=== PATIENT | male | born 1935 | race Caucasian/White ===

== ENCOUNTER → 2017-01-15 | Outpatient (CLI) | payer MEDICARE, OTHER ==
[~2017-01-15] MED LIST: ALBU8.5H3 INH; ASPI-621 PO; ASPI325T80 PO; ASPI325T92 PO; CHOL200024 PO; CLOP75TA PO; DABI150C PO; FINA5TAB4 PO; HYDR-3138 PO; HYDR25TA6 PO; LOSA100T6 PO; METO25TA35 PO; NITR0.4T8 SL; OMEP40CA6 PO; PRAV80TA2 PO; PRO AIR HFA PO; SULF1TAB24 PO; TAMS0.4C2 PO; TIZA4TAB PO; VIT1TABL32 PO
== END | disposition home or self-care (01) ==
LOC: CFH 12:37
PROVIDERS: ATTEND Internal Medicine Cardiovascular Disease
DX: R07.9 Chest pain, unspecified (principal)
CPT/HCPCS: 93306

== ENCOUNTER 2017-01-21 09:40 | Inpatient (IN) | payer MEDICARE, OTHER ==
[~2017-01-21] VITALS: Ht 185.4 cm; Wt 103.1 kg
[2017-01-21] MEDS ORDERED: SODIUM CHLORIDE 0.9% 1,000 ML IV SCH (10:01)
[2017-01-21] MEDS ORDERED: ASPIRIN 325 MG TABLET EC PO ONE (10:30)
[2017-01-21] MEDS ORDERED: BISACODYL 5 MG EC TABLET PO PRN (10:30)
[2017-01-21] MEDS ORDERED: PLEASE ENTER HEIGHT AND WEIGHT MC SCH (10:30)
[2017-01-21] MEDS ORDERED: BISACODYL 10 MG SUPP PR PRN (10:30)
[2017-01-21] MEDS ORDERED: ONDANSETRON 2MG/ML, 2ML IVPush PRN (10:30)
[2017-01-21] MEDS ORDERED: ZOLPIDEM 5MG TABLET PO PRN (10:30)
[2017-01-21] MEDS ORDERED: ACETAMINOPHEN 325 MG TABLET PO PRN (10:30)
[2017-01-21 10:31] VITALS: BP 166/89
[2017-01-21 10:42] LABS: HEMATOCRIT 48.5 % (39.2-51.8); HEMOGLOBIN 16.2 g/dL (13.7-18.0); WHITE BLOOD COUNT 6.4 x10^3/uL (3.4-10)
[2017-01-21 10:50] LABS: BLOOD UREA NITROGEN 21 mg/dL (7-18)
[2017-01-21 11:01] VITALS: BP 168/89
[2017-01-21] MEDS ORDERED: MIDAZOLAM 1 MG/ML, 5ML ONE (11:23)
[2017-01-21] MEDS ORDERED: LIDOCAINE 2%, 20ML ONE (11:23)
[2017-01-21] MEDS ORDERED: FENTANYL PF 100 MCG/2ML ONE (11:23)
[2017-01-21] MEDS ORDERED: NITROGLYCERIN 0.4 MG BOTTLE (25 TABS) SL PRN (13:30)
[2017-01-21] MEDS: METOPROLOL TARTRATE 25 MG TABLET PO SCH (18:20)
[2017-01-21 19:49] VITALS: BP 136/68
[2017-01-21] MEDS: PRAVASTATIN 40 MG TABLET PO SCH (21:35)
[2017-01-22 01:32] VITALS: BP_SYST 127; BP_SYST 146; BP_DIAS 62; BP_DIAS 82
[2017-01-22] MEDS: ASPIRIN 81 MG TABLET EC PO SCH (06:45)
[2017-01-22] MEDS: METOPROLOL TARTRATE 25 MG TABLET PO SCH ×2 (06:45→17:12)
[2017-01-22 06:52] VITALS: BP 138/80
[2017-01-22] MEDS: OMEPRAZOLE 20 MG CAPSULE.DR PO SCH (07:30)
[2017-01-22] MEDS ORDERED: DABIGATRAN 150 MG CAPSULE PO SCH (09:00)
[2017-01-22] MEDS ORDERED: CLOPIDOGREL 75 MG TABLET PO SCH (09:00)
[2017-01-22] MEDS: CHOLECALCIFEROL 1,000 UNIT TABLET PO SCH (09:34)
[2017-01-22] MEDS: MULTIVITAMINS/MINERALS TABLET PO SCH (09:35)
[2017-01-22] MEDS: LOSARTAN 50MG TABLET PO SCH (09:35)
[2017-01-22] MEDS: HYDROCHLOROTHIAZIDE 25 MG TABLET PO SCH (09:35)
[2017-01-22] MEDS: TIZANIDINE 4MG TABLET PO SCH (09:35)
[2017-01-22 12:58] VITALS: BP 120/71
[2017-01-22 17:11] VITALS: BP 137/74
[2017-01-22 20:11] VITALS: BP 123/73
[2017-01-22] MEDS: PRAVASTATIN 40 MG TABLET PO SCH (22:42)
[2017-01-23 03:32] VITALS: BP 128/72
[2017-01-23] MEDS: METOPROLOL TARTRATE 25 MG TABLET PO SCH ×2 (06:37→17:46)
[2017-01-23] MEDS: ASPIRIN 81 MG TABLET EC PO SCH (06:37)
[2017-01-23 07:54] VITALS: BP 120/69
[2017-01-23] MEDS: OMEPRAZOLE 20 MG CAPSULE.DR PO SCH (08:30)
[2017-01-23] MEDS: MULTIVITAMINS/MINERALS TABLET PO SCH (08:31)
[2017-01-23] MEDS: TIZANIDINE 4MG TABLET PO SCH (08:31)
[2017-01-23] MEDS: HYDROCHLOROTHIAZIDE 25 MG TABLET PO SCH (08:31)
[2017-01-23] MEDS: CHOLECALCIFEROL 1,000 UNIT TABLET PO SCH (08:31)
[2017-01-23] MEDS: LOSARTAN 50MG TABLET PO SCH (08:32)
[2017-01-23 13:44] VITALS: BP 108/61
[2017-01-23] MEDS: PRAVASTATIN 40 MG TABLET PO SCH (20:36)
[2017-01-23 20:40] VITALS: BP 123/71
[2017-01-24 03:32] VITALS: BP 118/69
[2017-01-24] MEDS: ASPIRIN 81 MG TABLET EC PO SCH (06:54)
[2017-01-24] MEDS: METOPROLOL TARTRATE 25 MG TABLET PO SCH ×2 (06:54→18:02)
[2017-01-24] MEDS: OMEPRAZOLE 20 MG CAPSULE.DR PO SCH (07:30)
[2017-01-24 07:32] VITALS: BP 117/69
[2017-01-24] MEDS: TIZANIDINE 4MG TABLET PO SCH (07:46)
[2017-01-24] MEDS: LOSARTAN 50MG TABLET PO SCH (07:46)
[2017-01-24] MEDS: CHOLECALCIFEROL 1,000 UNIT TABLET PO SCH (07:46)
[2017-01-24] MEDS: HYDROCHLOROTHIAZIDE 25 MG TABLET PO SCH (07:46)
[2017-01-24] MEDS: MULTIVITAMINS/MINERALS TABLET PO SCH (07:46)
[2017-01-24] MEDS ORDERED: HEPARIN wt. based STROKE protocol MC PRN (10:00)
[2017-01-24] MEDS ORDERED: HEPARIN 25,000 UNITS/500ML PMX 500 ML IV PRN (10:30)
[2017-01-24] MEDS ORDERED: HEPARIN 5,000 UNITS/ML, 1ML ONE (10:32)
[2017-01-24 10:47] LABS: HEMATOCRIT 48.7 % (39.2-51.8); HEMOGLOBIN 16.2 g/dL (13.7-18.0)
[2017-01-24] MEDS: HEPARIN 25,000 UNITS/500ML PMX 500 ML IV PRN (10:54)
[2017-01-24] MEDS ORDERED: HEPARIN 5,000 UNITS/ML, 1ML IV ONE (11:00)
[2017-01-24 14:17] VITALS: BP 121/74
[2017-01-24 20:19] VITALS: BP 128/75
[2017-01-24] MEDS: PRAVASTATIN 40 MG TABLET PO SCH (20:22)
[2017-01-24] MEDS: HEPARIN 5,000 UNITS/ML, 1ML IV PRN (23:18)
[2017-01-25 03:19] VITALS: BP 121/71
[2017-01-25 05:21] VITALS: BP 117/72
[2017-01-25] MEDS: ASPIRIN 81 MG TABLET EC PO SCH (05:21)
[2017-01-25] MEDS: METOPROLOL TARTRATE 25 MG TABLET PO SCH ×2 (05:21→17:26)
[2017-01-25] MEDS: HEPARIN 25,000 UNITS/500ML PMX 500 ML IV PRN ×2 (05:27→23:12)
[2017-01-25 07:03] VITALS: BP 123/73
[2017-01-25] MEDS: OMEPRAZOLE 20 MG CAPSULE.DR PO SCH (07:30)
[2017-01-25] MEDS: TIZANIDINE 4MG TABLET PO SCH (09:12)
[2017-01-25] MEDS: MULTIVITAMINS/MINERALS TABLET PO SCH (09:12)
[2017-01-25] MEDS: LOSARTAN 50MG TABLET PO SCH (09:12)
[2017-01-25] MEDS: CHOLECALCIFEROL 1,000 UNIT TABLET PO SCH (09:13)
[2017-01-25] MEDS: HYDROCHLOROTHIAZIDE 25 MG TABLET PO SCH (09:13)
[2017-01-25] MEDS: HEPARIN 5,000 UNITS/ML, 1ML IV PRN (12:10)
[2017-01-25 14:00] VITALS: BP 109/64
[2017-01-25 19:27] VITALS: BP 102/62
[2017-01-25] MEDS: PRAVASTATIN 40 MG TABLET PO SCH (21:04)
[2017-01-26 01:17] VITALS: BP 180/88
[2017-01-26 01:19] VITALS: BP 138/69
[2017-01-26 05:26] VITALS: BP 143/76
[2017-01-26] MEDS: METOPROLOL TARTRATE 25 MG TABLET PO SCH ×2 (05:26→16:38)
[2017-01-26] MEDS: ASPIRIN 81 MG TABLET EC PO SCH (05:27)
[2017-01-26] MEDS ORDERED: INSULIN ASPART 100 UNITS/ML, PEN SQ-INSULIN SCH (08:00)
[2017-01-26] MEDS ORDERED: METOPROLOL TARTRATE 25 MG TABLET PO ONE (08:00)
[2017-01-26] MEDS ORDERED: CHLORHEXIDINE MOUTHWASH 15 ML UDC MM PRN (08:00)
[2017-01-26] MEDS: HYDROCHLOROTHIAZIDE 25 MG TABLET PO SCH (08:06)
[2017-01-26] MEDS: CHOLECALCIFEROL 1,000 UNIT TABLET PO SCH (08:06)
[2017-01-26] MEDS: MULTIVITAMINS/MINERALS TABLET PO SCH (08:07)
[2017-01-26] MEDS: OMEPRAZOLE 20 MG CAPSULE.DR PO SCH (08:07)
[2017-01-26] MEDS: TIZANIDINE 4MG TABLET PO SCH (08:07)
[2017-01-26] MEDS: LOSARTAN 50MG TABLET PO SCH (08:07)
[2017-01-26] MEDS: MUPIROCIN OINT 2%, 22GM TP SCH ×2 (08:08→23:12)
[2017-01-26] MEDS: SODIUM CHLORIDE FLUSH 10ML SYR IVF SCH ×2 (08:10→22:15)
[2017-01-26 08:13] VITALS: BP 137/80
[2017-01-26 08:20] LABS: HEMATOCRIT 52.3 % (39.2-51.8); HEMOGLOBIN 17.3 g/dL (13.7-18.0); WHITE BLOOD COUNT 7.8 x10^3/uL (3.4-10)
[2017-01-26 08:30] LABS: ASPARTATE AMINO TRANSFERASE 23 U/L (15-37); BLOOD UREA NITROGEN 24 mg/dL (7-18)
[2017-01-26 12:49] LABS: PATH.CAST-FLAG NOT PRESENT; SPERM-FLAG NOT PRESENT; SRC-FLAG NOT PRESENT; XTAL-FLAG NOT PRESENT; YLC-FLAG NOT PRESENT
[2017-01-26 14:30] VITALS: BP 115/68
[2017-01-26] MEDS: HEPARIN 25,000 UNITS/500ML PMX 500 ML IV PRN (16:00)
[2017-01-26 19:40] VITALS: BP 122/69
[2017-01-26] MEDS: PRAVASTATIN 40 MG TABLET PO SCH (22:15)
[2017-01-27] MEDS ORDERED: ALBUMIN HUMAN 5% 500 ML IV ONE (00:30)
[2017-01-27 03:30] VITALS: BP_SYST 118; BP_SYST 120; BP_DIAS 68; BP_DIAS 70
[2017-01-27] MEDS: ASPIRIN 81 MG TABLET EC PO SCH (05:16)
[2017-01-27] MEDS: METOPROLOL TARTRATE 25 MG TABLET PO SCH (05:17)
[2017-01-27] MEDS: MUPIROCIN OINT 2%, 22GM TP SCH (05:17)
[2017-01-27] MEDS ORDERED: FENTANYL PF 1000 MCG/20ML ONE (06:30)
[2017-01-27] MEDS ORDERED: MIDAZOLAM 10MG/2 ML ONE (06:31)
[2017-01-27] MEDS ORDERED: REGULAR INSULIN 62.5 UNITS in SODIUM CHLORIDE 0.9% 249.375 ML IV PRN ×2 (07:30→11:15)
[2017-01-27] MEDS ORDERED: MANNITOL PMX 20% 500 ML IVPB PRN (07:30)
[2017-01-27] MEDS ORDERED: CEFUROXIME 1.5 GM in SODIUM CHLORIDE 0.9% 50 ML IVPB PRN (07:30)
[2017-01-27] MEDS ORDERED: DEXMEDETOMIDINE 200 MCG in SODIUM CHLORIDE 0.9% 48 ML IV SCH (07:30)
[2017-01-27] MEDS ORDERED: EPINEPHRINE 2 MG in SODIUM CHLORIDE 0.9% 248 ML IV SCH (07:30)
[2017-01-27] MEDS ORDERED: POTASSIUM CHLORIDE 80 MEQ, SODIUM BICARBONATE 8.4% 10 MEQ, MAGNESIUM SULFATE 0.5 GM, LI... IV PRN (07:30)
[2017-01-27] MEDS ORDERED: PHENYLEPHRINE 10 MG in SODIUM CHLORIDE 0.9% 249 ML IV PRN ×2 (07:30→11:15)
[2017-01-27] MEDS: OMEPRAZOLE 20 MG CAPSULE.DR PO SCH (07:30)
[2017-01-27] MEDS ORDERED: VANCOMYCIN 1,500 MG in SODIUM CHLORIDE 0.9% 250 ML IVPB PRN (07:30)
[2017-01-27] MEDS: LOSARTAN 50MG TABLET PO SCH (09:00)
[2017-01-27] MEDS: MULTIVITAMINS/MINERALS TABLET PO SCH (09:00)
[2017-01-27] MEDS: HYDROCHLOROTHIAZIDE 25 MG TABLET PO SCH (09:00)
[2017-01-27] MEDS: SODIUM CHLORIDE FLUSH 10ML SYR IVF SCH ×3 (09:00→21:45)
[2017-01-27] MEDS: TIZANIDINE 4MG TABLET PO SCH (09:00)
[2017-01-27] MEDS: CHOLECALCIFEROL 1,000 UNIT TABLET PO SCH (09:00)
[2017-01-27] MEDS ORDERED: PAPAVERINE 30 MG/ML, 2ML IVPush ONE (10:42)
[2017-01-27] MEDS ORDERED: HEPARIN 1,000 UNITS/ML, 10ML IV ONE (10:43)
[2017-01-27] MEDS ORDERED: PROTAMINE SULFATE 10 MG/ML, 25ML ONE (11:01)
[2017-01-27] MEDS ORDERED: PAPAVERINE 30 MG/ML, 2ML ONE (11:01)
[2017-01-27] MEDS ORDERED: HEPARIN 1,000 UNITS/ML, 10ML ONE (11:01)
[2017-01-27] MEDS ORDERED: AMINOCAPROIC ACID 250 MG/ML, 20ML ONE (11:01)
[2017-01-27] MEDS ORDERED: AMIODARONE 50 MG/ML, 3ML ONE (11:01)
[2017-01-27] MEDS ORDERED: SODIUM CHLORIDE 0.9% 1,000 ML IV PRN (11:15)
[2017-01-27] MEDS ORDERED: DOBUTAMINE 250 MG in SODIUM CHLORIDE 0.9% 230 ML IV PRN (11:15)
[2017-01-27] MEDS ORDERED: NITROGLYCERIN/D5W PMX 250 ML IV PRN (11:15)
[2017-01-27] MEDS ORDERED: DEXMEDETOMIDINE 200 MCG in SODIUM CHLORIDE 0.9% 48 ML IV PRN (11:15)
[2017-01-27] MEDS ORDERED: FUROSEMIDE 20 MG/2 ML IV SCH (11:30)
[2017-01-27] MEDS ORDERED: PROCHLORPERAZINE 5 MG/ML, 2ML IVPush PRN (11:30)
[2017-01-27] MEDS ORDERED: ACETAMINOPHEN 325 MG TABLET PO PRN (11:30)
[2017-01-27] MEDS ORDERED: DEXTROSE 50%, 50ML SYRINGE IVPush PRN (11:30)
[2017-01-27] MEDS ORDERED: EPINEPHRINE 2 MG in SODIUM CHLORIDE 0.9% 248 ML IV PRN (11:30)
[2017-01-27] MEDS ORDERED: BISACODYL 10 MG SUPP PR PRN (11:30)
[2017-01-27] MEDS ORDERED: BISACODYL 5 MG EC TABLET PO PRN (11:30)
[2017-01-27] MEDS ORDERED: DEXTROSE 4 GM TAB.CHEW PO PRN (11:30)
[2017-01-27] MEDS ORDERED: ACETAMINOPHEN 650 MG SUPP PR PRN (11:30)
[2017-01-27] MEDS ORDERED: SODIUM BICARB 8.4%, 50ML SYRINGE IV PRN (11:30)
[2017-01-27] MEDS ORDERED: LACTATED RINGERS 500 ML IVBOLUS PRN (11:30)
[2017-01-27] MEDS: KSCALE TO 4.5 IV SCH ×3 (11:30→23:30)
[2017-01-27] MEDS ORDERED: GLUCAGON 1 MG IM PRN (11:30)
[2017-01-27] MEDS ORDERED: MIDAZOLAM 1 MG/ML, 5ML IVPush PRN (11:30)
[2017-01-27] MEDS ORDERED: MEPERIDINE/PF 25MG/0.5ML IVPush PRN (11:30)
[2017-01-27 11:49] LABS: ABG COLLECTION SITE ARTERIAL LINE
[2017-01-27 11:52] LABS: HEMOGLOBIN 12.6 g/dL (13.7-18.0)
[2017-01-27] MEDS: MAGNESIUM SULFATE 1 GM in SODIUM CHLORIDE 0.9% 50 ML IVPB SCH (12:53)
[2017-01-27] MEDS ORDERED: POTASSIUM CHLORIDE PMX 100 ML IV ONE (13:00)
[2017-01-27] MEDS ORDERED: SODIUM BICARB 8.4%, 50ML SYRINGE ONE (13:10)
[2017-01-27] MEDS ORDERED: ALBUMIN HUMAN 25% 50 ML ONE (13:10)
[2017-01-27] MEDS ORDERED: HEPARIN 1,000 UNITS/ML, 30ML ONE (13:10)
[2017-01-27] MEDS ORDERED: LIDOCAINE 2% 100MG/5ML SYRINGE ONE (13:10)
[2017-01-27] MEDS: morphine SULFATE 10 MG/ML, 1ML IVPush PRN ×2 (15:14→16:54)
[2017-01-27] MEDS: HYDROcodone/APAP 10/325 MG TABLET PO PRN (16:30)
[2017-01-27] MEDS: ONDANSETRON 2MG/ML, 2ML IVPush PRN (16:50)
[2017-01-27] MEDS: CEFUROXIME 1.5 GM in SODIUM CHLORIDE 0.9% 50 ML IVPB SCH (17:51)
[2017-01-27 17:56] LABS: HEMATOCRIT 40.3 % (39.2-51.8); HEMOGLOBIN 13.4 g/dL (13.7-18.0)
[2017-01-27] MEDS ORDERED: POTASSIUM CHLORIDE 40 MEQ in SODIUM CHLORIDE 0.9% 100 ML IV ONE (18:00)
[2017-01-27] MEDS: VANCOMYCIN 1,500 MG in SODIUM CHLORIDE 0.9% 250 ML IVPB SCH (18:26)
[2017-01-27] MEDS: DOCUSATE 100 MG CAPSULE PO SCH (21:45)
[2017-01-27] MEDS: OXYcodone IR 5MG TABLET PO PRN ×2 (21:47→22:40)
[2017-01-27] MEDS: MUPIROCIN OINT 2%, 22GM NAS SCH (22:40)
[2017-01-27 23:42] LABS: HEMATOCRIT 38.6 % (39.2-51.8); HEMOGLOBIN 12.8 g/dL (13.7-18.0)
[2017-01-28] MEDS: OXYcodone IR 5MG TABLET PO PRN ×6 (00:15→23:52)
[2017-01-28] MEDS: morphine SULFATE 10 MG/ML, 1ML IVPush PRN ×2 (02:39→02:53)
[2017-01-28 04:30] VITALS: BP 113/58
[2017-01-28] MEDS: KSCALE TO 4.5 IV SCH (05:30)
[2017-01-28] MEDS: VANCOMYCIN 1,500 MG in SODIUM CHLORIDE 0.9% 250 ML IVPB SCH (05:36)
[2017-01-28 05:58] LABS: ABG COLLECTION SITE ARTERIAL LINE
[2017-01-28 06:07] LABS: HEMATOCRIT 38.2 % (39.2-51.8); HEMOGLOBIN 12.8 g/dL (13.7-18.0); WHITE BLOOD COUNT 11.4 x10^3/uL (3.4-10)
[2017-01-28 06:10] LABS: BLOOD UREA NITROGEN 21 mg/dL (7-18)
[2017-01-28] MEDS: CEFUROXIME 1.5 GM in SODIUM CHLORIDE 0.9% 50 ML IVPB SCH (07:55)
[2017-01-28] MEDS ORDERED: PROPOFOL 10 MG/ML, 20ML ONE (08:14)
[2017-01-28] MEDS: ONDANSETRON 2MG/ML, 2ML IVPush PRN (08:14)
[2017-01-28] MEDS ORDERED: ROCURONIUM 10 MG/ML ONE (08:14)
[2017-01-28] MEDS ORDERED: MAGNESIUM HYDROXIDE 8%, 30ML UDC PO PRN (08:30)
[2017-01-28] MEDS: DOCUSATE 100 MG CAPSULE PO SCH ×2 (09:00→21:37)
[2017-01-28] MEDS ORDERED: TIZANIDINE 4MG TABLET PO SCH (09:00)
[2017-01-28] MEDS: SODIUM CHLORIDE FLUSH 10ML SYR IVF SCH ×5 (09:00→21:36)
[2017-01-28] MEDS: LOSARTAN 50MG TABLET PO SCH (09:47)
[2017-01-28] MEDS: MUPIROCIN OINT 2%, 22GM NAS SCH ×2 (09:47→21:36)
[2017-01-28] MEDS: TIZANIDINE 4MG TABLET PO SCH (10:44)
[2017-01-28] MEDS: ASPIRIN 81 MG TABLET EC PO SCH (10:45)
[2017-01-28] MEDS: PANTOPRAZOLE 40 MG IV IVPush SCH (10:45)
[2017-01-28] MEDS: MULTIVITAMINS/MINERALS TABLET PO SCH (10:45)
[2017-01-28] MEDS: METOPROLOL TARTRATE 25 MG TABLET PO/NG SCH ×2 (10:45→21:36)
[2017-01-28] MEDS: INSULIN ASPART 100 UNITS/ML, PEN SQ-INSULIN PRN ×3 (10:56→21:41)
[2017-01-28] MEDS: CHLORHEXIDINE MOUTHWASH 15 ML UDC MM SCH ×2 (11:30→22:35)
[2017-01-28] MEDS: MAGNESIUM SULFATE 1 GM in SODIUM CHLORIDE 0.9% 50 ML IVPB SCH (13:54)
[2017-01-28] MEDS: HYDROcodone/APAP 10/325 MG TABLET PO PRN ×2 (17:27→21:37)
[2017-01-28 20:27] VITALS: BP 95/54
[2017-01-28] MEDS: TEMPLATE NON-FORMULARY MED. (Pravastatin Sodium** 80 MG) PO SCH (21:00)
[2017-01-28 21:29] VITALS: BP 104/62
[2017-01-28] MEDS: PRAVASTATIN 40 MG TABLET PO SCH (22:35)
[2017-01-29 01:00] VITALS: BP 111/61
[2017-01-29] MEDS: ONDANSETRON 2MG/ML, 2ML IVPush PRN (01:43)
[2017-01-29 06:10] LABS: HEMATOCRIT 37.2 % (39.2-51.8); HEMOGLOBIN 12.3 g/dL (13.7-18.0); WHITE BLOOD COUNT 12.2 x10^3/uL (3.4-10)
[2017-01-29 06:21] LABS: BLOOD UREA NITROGEN 30 mg/dL (7-18)
[2017-01-29 07:27] VITALS: BP 102/62
[2017-01-29] MEDS: SODIUM CHLORIDE FLUSH 10ML SYR IVF SCH ×6 (07:36→19:59)
[2017-01-29] MEDS: PANTOPRAZOLE 40 MG IV IVPush SCH (08:13)
[2017-01-29] MEDS: POTASSIUM CHLORIDE 10 MEQ TABLET.ER PO SCH (08:14)
[2017-01-29] MEDS: LOSARTAN 50MG TABLET PO SCH (08:14)
[2017-01-29] MEDS: FUROSEMIDE 20 MG/2 ML IV SCH (08:14)
[2017-01-29] MEDS: DOCUSATE 100 MG CAPSULE PO SCH ×2 (08:14→19:59)
[2017-01-29] MEDS: MULTIVITAMINS/MINERALS TABLET PO SCH (08:14)
[2017-01-29] MEDS: ENOXAPARIN 40 MG/0.4 ML SQ SCH (08:14)
[2017-01-29] MEDS: ASPIRIN 81 MG TABLET EC PO SCH (08:15)
[2017-01-29] MEDS: METOPROLOL TARTRATE 25 MG TABLET PO/NG SCH ×2 (08:15→21:42)
[2017-01-29] MEDS: TIZANIDINE 4MG TABLET PO SCH (08:15)
[2017-01-29] MEDS: MUPIROCIN OINT 2%, 22GM NAS SCH ×2 (08:15→19:59)
[2017-01-29] MEDS: INSULIN ASPART 100 UNITS/ML, PEN SQ-INSULIN PRN ×3 (08:16→17:26)
[2017-01-29] MEDS: CHLORHEXIDINE MOUTHWASH 15 ML UDC MM SCH ×2 (10:45→21:43)
[2017-01-29] MEDS: MAGNESIUM SULFATE 1 GM in SODIUM CHLORIDE 0.9% 50 ML IVPB SCH (14:52)
[2017-01-29 16:01] VITALS: BP 93/57
[2017-01-29 19:45] VITALS: BP_SYST 104; BP_SYST 92; BP_DIAS 54; BP_DIAS 59
[2017-01-29] MEDS: HYDROcodone/APAP 10/325 MG TABLET PO PRN (19:59)
[2017-01-29 21:42] VITALS: BP 96/60
[2017-01-29] MEDS ORDERED: PRAVASTATIN 40 MG TABLET PO ONE (23:30)
[2017-01-30] MEDS: ONDANSETRON 2MG/ML, 2ML IVPush PRN (02:53)
[2017-01-30] MEDS: HYDROcodone/APAP 10/325 MG TABLET PO PRN ×3 (03:14→19:25)
[2017-01-30 03:30] VITALS: BP 116/68
[2017-01-30 06:43] LABS: BLOOD UREA NITROGEN 39 mg/dL (7-18)
[2017-01-30 07:58] VITALS: BP 126/70
[2017-01-30] MEDS ORDERED: CLOPIDOGREL 75 MG TABLET PO SCH (09:00)
[2017-01-30] MEDS: POTASSIUM CHLORIDE 10 MEQ TABLET.ER PO SCH (10:19)
[2017-01-30] MEDS: METOPROLOL TARTRATE 25 MG TABLET PO/NG SCH ×2 (10:19→19:25)
[2017-01-30] MEDS: TIZANIDINE 4MG TABLET PO SCH (10:19)
[2017-01-30] MEDS: PANTOPRAZOLE 40 MG IV IVPush SCH (10:19)
[2017-01-30] MEDS: LOSARTAN 50MG TABLET PO SCH (10:19)
[2017-01-30] MEDS: MULTIVITAMINS/MINERALS TABLET PO SCH (10:19)
[2017-01-30] MEDS: ASPIRIN 81 MG TABLET EC PO SCH (10:19)
[2017-01-30] MEDS: MUPIROCIN OINT 2%, 22GM NAS SCH ×2 (10:20→19:25)
[2017-01-30] MEDS: ENOXAPARIN 40 MG/0.4 ML SQ SCH (10:20)
[2017-01-30] MEDS: DABIGATRAN 150 MG CAPSULE PO SCH (10:20)
[2017-01-30] MEDS: FUROSEMIDE 20 MG/2 ML IV SCH (10:21)
[2017-01-30] MEDS: SODIUM CHLORIDE FLUSH 10ML SYR IVF SCH ×6 (10:23→19:25)
[2017-01-30] MEDS: DOCUSATE 100 MG CAPSULE PO SCH (10:48)
[2017-01-30 14:04] VITALS: BP 92/54
[2017-01-30 18:28] VITALS: BP 98/61
[2017-01-30 19:24] VITALS: BP 108/65
[2017-01-30] MEDS ORDERED: DOCUSATE 100 MG CAPSULE PO SCH (21:00)
[2017-01-30] MEDS: PRAVASTATIN 40 MG TABLET PO SCH (22:35)
[2017-01-31] MEDS: HYDROcodone/APAP 10/325 MG TABLET PO PRN ×3 (00:21→10:15)
[2017-01-31 02:10] VITALS: BP 114/69
[2017-01-31 05:07] LABS: BLOOD UREA NITROGEN 40 mg/dL (7-18)
[2017-01-31 07:57] VITALS: BP 109/65
[2017-01-31] MEDS: SODIUM CHLORIDE FLUSH 10ML SYR IVF SCH ×4 (09:00→21:21)
[2017-01-31] MEDS: PANTOPRAZOLE 40 MG IV IVPush SCH (09:00)
[2017-01-31] MEDS: DOCUSATE 100 MG CAPSULE PO SCH (09:00)
[2017-01-31] MEDS: FUROSEMIDE 40 MG TABLET PO SCH (09:36)
[2017-01-31] MEDS: POTASSIUM CHLORIDE 20 MEQ TAB.ER.PRT PO SCH (09:36)
[2017-01-31] MEDS: DABIGATRAN 150 MG CAPSULE PO SCH (09:36)
[2017-01-31] MEDS: MULTIVITAMINS/MINERALS TABLET PO SCH (09:36)
[2017-01-31] MEDS: TIZANIDINE 4MG TABLET PO SCH (09:36)
[2017-01-31] MEDS: METOPROLOL TARTRATE 25 MG TABLET PO/NG SCH ×2 (09:37→21:21)
[2017-01-31] MEDS: LOSARTAN 50MG TABLET PO SCH (09:37)
[2017-01-31] MEDS: ASPIRIN 81 MG TABLET EC PO SCH (09:37)
[2017-01-31] MEDS: MUPIROCIN OINT 2%, 22GM NAS SCH ×2 (09:37→21:21)
[2017-01-31] MEDS ORDERED: ASPI-621 PO (11:42)
[2017-01-31 13:12] VITALS: BP 119/69
[2017-01-31 20:28] VITALS: BP 138/77
[2017-01-31] MEDS ORDERED: PRAVASTATIN 40 MG TABLET PO SCH (21:00)
[2017-01-31] MEDS: PRAVASTATIN 40 MG TABLET PO SCH (21:00)
[2017-01-31 21:10] VITALS: BP 105/60
[2017-02-01 03:00] VITALS: BP 143/69
[2017-02-01 05:36] LABS: BLOOD UREA NITROGEN 28 mg/dL (7-18)
[2017-02-01 07:26] VITALS: BP 119/67
[2017-02-01] MEDS ORDERED: PANTOPROZOLE 40MG TABLET PO SCH (07:30)
[2017-02-01] MEDS: LOSARTAN 50MG TABLET PO SCH (08:33)
[2017-02-01] MEDS: SODIUM CHLORIDE FLUSH 10ML SYR IVF SCH (08:33)
[2017-02-01] MEDS: MUPIROCIN OINT 2%, 22GM NAS SCH (08:33)
[2017-02-01] MEDS: DOCUSATE 100 MG CAPSULE PO SCH (08:33)
[2017-02-01] MEDS: MULTIVITAMINS/MINERALS TABLET PO SCH (08:33)
[2017-02-01] MEDS: POTASSIUM CHLORIDE 20 MEQ TAB.ER.PRT PO SCH (08:34)
[2017-02-01] MEDS: ASPIRIN 81 MG TABLET EC PO SCH (08:34)
[2017-02-01] MEDS: METOPROLOL TARTRATE 25 MG TABLET PO/NG SCH (08:34)
[2017-02-01] MEDS: DABIGATRAN 150 MG CAPSULE PO SCH (08:34)
[2017-02-01] MEDS: TIZANIDINE 4MG TABLET PO SCH ×2 (08:34→08:38)
[2017-02-01] MEDS: FUROSEMIDE 40 MG TABLET PO SCH (08:34)
[2017-02-01] MEDS ORDERED: DOCU-30 PO (14:12)
[2017-02-01] MEDS ORDERED: ACET325T26 PO (14:14)
[2017-02-01 14:29] VITALS: BP 109/68
[2017-02-01] MEDS ORDERED: PRAVASTATIN 40 MG TABLET PO SCH (21:00)
== END 2017-02-01 16:39 | disposition home health service (06) | DRG 233 ==
LOC: CACL 09:40 → 5SO 12:55 → CACL 23:39 → 5SO 23:40 → CSU 01-27 09:43 → 5SO 01-28 17:24 → DCLOUNGE 02-01 15:41
PROVIDERS: ADMIT Internal Medicine Cardiovascular Disease; ATTEND Internal Medicine Cardiovascular Disease
PROC: B2111ZZ Fluoroscopy of Multiple Coronary Arteries using Low Osmolar Contrast (ICD-10-PCS; 2017-01-21)
PROC: 4A023N7 Measurement of Cardiac Sampling and Pressure, Left Heart, Percutaneous Approach (ICD-10-PCS; 2017-01-21)
PROC: B2151ZZ Fluoroscopy of Left Heart using Low Osmolar Contrast (ICD-10-PCS; 2017-01-21)
PROC: 02100Z9 Bypass Coronary Artery, One Artery from Left Internal Mammary, Open Approach (ICD-10-PCS; 2017-01-27)
PROC: 06BP4ZZ Excision of Right Saphenous Vein, Percutaneous Endoscopic Approach (ICD-10-PCS; 2017-01-27)
PROC: 5A1221Z Performance of Cardiac Output, Continuous (ICD-10-PCS; 2017-01-27)
PROC: 021109W Bypass Coronary Artery, Two Arteries from Aorta with Autologous Venous Tissue, Open Approach (ICD-10-PCS; principal; 2017-01-27 08:00)
DX: I25.110 Atherosclerotic heart disease of native coronary artery with unstable angina pectoris (principal); I50.31 Acute diastolic (congestive) heart failure; D68.69 Other thrombophilia; C68.9 Malignant neoplasm of urinary organ, unspecified; J98.11 Atelectasis; I25.10 Atherosclerotic heart disease of native coronary artery without angina pectoris; E78.5 Hyperlipidemia, unspecified; I48.91 Unspecified atrial fibrillation; I48.2 Chronic atrial fibrillation; J44.9 Chronic obstructive pulmonary disease, unspecified; I34.0 Nonrheumatic mitral (valve) insufficiency; D64.9 Anemia, unspecified; I25.2 Old myocardial infarction; Z87.891 Personal history of nicotine dependence; Z82.5 Family history of asthma and other chronic lower respiratory diseases; Z95.0 Presence of cardiac pacemaker; Z95.5 Presence of coronary angioplasty implant and graft; Z90.49 Acquired absence of other specified parts of digestive tract; Z79.01 Long term (current) use of anticoagulants; Z79.82 Long term (current) use of aspirin; Z79.899 Other long term (current) drug therapy; I11.0 Hypertensive heart disease with heart failure
CPT/HCPCS: 36415; 36600; 71010; 71020; 80048; 80053; 81001; 82040; 82330; 82800; 82803; 82810; 82947; 82962; 83036; 83735; 84132; 84295; 85014; 85018; 85025; 85049; 85347; 85520; 85610; 85730; 86850; 86900; 86923; 87081; 93005; 93312; 93321; 93325; 93458; 93880; 94002; 99156; C1760; C1894; J0697; J1644; J1650; J1815; J2250; J2405; J2704; J2720; J3010; J3370; J3475; J3480; J3490; P9045; P9047; C1751; C9113; J0171; J0282; J1940; J2270; J2370; J2440; J7050; Q9967

== ENCOUNTER 2017-04-24 06:01 | Day surgery (SDC) | payer MEDICARE, OTHER ==
[~2017-04-24] VITALS: Ht 185.4 cm; Wt 94.1 kg
[~2017-04-24 06:01] MED LIST changes: +ACET325T26 PO; -ALBU8.5H3 INH; +ALBU8.5H8 INH; +DOCU-131 PO; -HYDR-3138 PO; +HYDR-3237 PO; +NITR0.4T28 SL; -NITR0.4T8 SL
[2017-04-24] MEDS ORDERED: LACTATED RINGERS 1,000 ML IV SCH (06:52)
[2017-04-24 06:56] VITALS: BP 127/85
[2017-04-24] MEDS ORDERED: FENTANYL PF 250 MCG/5ML ONE (07:05)
[2017-04-24] MEDS ORDERED: PROPOFOL 10 MG/ML, 20ML ONE (07:06)
[2017-04-24] MEDS ORDERED: LIDOCAINE-MPF 2% ,5ML ONE (07:07)
[2017-04-24] MEDS ORDERED: SUCCINYLCHOLINE 20 MG/ML, 10ML ONE (07:07)
[2017-04-24] MEDS ORDERED: DEXAMETHASONE 4 MG/ML, 1ML ONE (07:07)
[2017-04-24] MEDS ORDERED: ONDANSETRON 2MG/ML, 2ML ONE (07:07)
[2017-04-24] MEDS ORDERED: PROPOFOL 50 ML ONE (07:10)
[2017-04-24] MEDS ORDERED: PHENYLEPHRINE 10 MG/ML ONE ×2 (07:17)
[2017-04-24 07:39] LABS: ASPARTATE AMINO TRANSFERASE 10 U/L (15-37); BLOOD UREA NITROGEN 19 mg/dL (7-18)
[2017-04-24] MEDS ORDERED: ONDANSETRON 2MG/ML, 2ML IVPush PRN (09:00)
[2017-04-24] MEDS ORDERED: FENTANYL PF 100 MCG/2ML IV PRN (09:00)
[2017-04-24] MEDS ORDERED: ACETAMINOPHEN 325 MG TABLET PO PRN (09:00)
[2017-04-24] MEDS ORDERED: HYDROmorphone 1 MG/ML, 1ML IV PRN (09:00)
[2017-04-24] MEDS ORDERED: MIDAZOLAM 1 MG/ML, 2ML IV PRN (09:00)
[2017-04-24] MEDS ORDERED: ALBUTEROL/IPRATROPIUM 2.5MG/0.5MG, 3 ML IPPB PRN (09:00)
[2017-04-24] MEDS ORDERED: ALBUTEROL SULFATE 2.5 MG/3 ML ONE (09:01)
== END 2017-04-24 11:10 ==
LOC: OUT 06:01
PROVIDERS: ATTEND Internal Medicine Critical Care Medicine
DX: R91.8 Other nonspecific abnormal finding of lung field (principal); I25.10 Atherosclerotic heart disease of native coronary artery without angina pectoris; I25.2 Old myocardial infarction; E78.5 Hyperlipidemia, unspecified; N40.0 Benign prostatic hyperplasia without lower urinary tract symptoms; I10 Essential (primary) hypertension; J44.9 Chronic obstructive pulmonary disease, unspecified; E66.9 Obesity, unspecified; Z68.29 Body mass index [BMI] 29.0-29.9, adult; Z87.891 Personal history of nicotine dependence; Z79.82 Long term (current) use of aspirin; Z88.5 Allergy status to narcotic agent
CPT/HCPCS: 31623; 31624; 31625; 36415; 80053; 88104; 88112; 88172; 88173; 88305; 93005; 94640; J0330; J1100; J2370; J2405; J2704; J3010; J3490; J7120

== ENCOUNTER → 2017-07-10 | Outpatient (CLI) | payer MEDICARE, OTHER | END | disposition home or self-care (01) | LOC: PETCFH 08:02 | PROVIDERS: ATTEND Internal Medicine Critical Care Medicine | DX: R91.1 Solitary pulmonary nodule (principal) | CPT/HCPCS: 78815; A9552 ==

== ENCOUNTER → 2017-08-15 | Outpatient (CLI) | payer MEDICARE, OTHER ==
[~2017-08-15] MED LIST changes: +OMNIPAQUE 350 MG/ML, 75ML BOTTLE ONE
== END | disposition home or self-care (01) ==
LOC: CFH 15:06
PROVIDERS: ATTEND Internal Medicine Critical Care Medicine
DX: R91.1 Solitary pulmonary nodule (principal)
CPT/HCPCS: 71260; 82565; Q9967

== ENCOUNTER 2018-01-13 14:34 | Inpatient (IN) | payer MEDICARE, OTHER ==
[~2018-01-13] VITALS: Ht 182.9 cm; Wt 100.3 kg
[~2018-01-13 14:34] MED LIST changes: -OMNIPAQUE 350 MG/ML, 75ML BOTTLE ONE
[2018-01-13] MEDS ORDERED: ASPIRIN 81 MG TABLET CHEW PO ONE (15:00)
[2018-01-13] MEDS ORDERED: SODIUM CHLORIDE FLUSH 10ML SYR IVF ONE (15:00)
[2018-01-13 15:04] LABS: BASOPHILS # (AUTO) 0.06 x10^3/uL (0-0.1); BASOPHILS % (AUTO) 1 % (0-1); EOSINOPHILS % (AUTO) 1 % (1-7); LYMPHOCYTES # (AUTO) 1.42 x10^3/uL (1-3.4); LYMPHOCYTES % (AUTO) 11 % (22-44); MD NO; MEAN CORPUSCULAR HEMOGLOBIN 31.9 pg (27.5-34.5); MEAN CORPUSCULAR HGB CONC 33.6 g/dL (33.2-36.2); MEAN CORPUSCULAR VOLUME 95.1 fL (81-97); MEAN PLATELET VOLUME 7.2 fL (7.4-10.4); MONOCYTES # (AUTO) 1.22 x10^3/uL (0.2-0.8); MONOCYTES % (AUTO) 9 % (2-9); NEUTROPHILS # (AUTO) 10.56 x10^3/uL (1.8-6.8); NEUTROPHILS % (AUTO) 79 % (42-75); PLATELET COUNT 194 x10^3/uL (130-400); RED BLOOD COUNT 4.97 x10^6/uL (4.38-5.82); RED CELL DISTRIBUTION WIDTH 14.4 % (9.4-14.8)
[2018-01-13 15:16] LABS: ALBUMIN 3.2 g/dL (3.4-5.0); ANION GAP 4 mmol/L (5-15); CALCIUM 8.7 mg/dL (8.5-10.1); CHLORIDE 103 mmol/L (98-107)
[2018-01-13 15:23] LABS: ALANINE AMINOTRANSFERASE 57 U/L (12-78); ALKALINE PHOSPHATASE 45 U/L (45-117); BILIRUBIN,TOTAL 0.8 mg/dL (0.2-1.0); CREATININE 1.33 mg/dL (0.7-1.3); TOTAL PROTEIN 6.1 g/dL (6.4-8.2); TROPONIN I < 0.015 ng/mL (0.000-0.045)
[2018-01-13 15:24] LABS: INTERNATIONAL NORMALIZED RATIO 1.1 (0.93-1.1); PROTHROMBIN TIME 11.4 Seconds (9.6-11.5)
[2018-01-13] MEDS ORDERED: GABA300C10 PO (15:34)
[2018-01-13] MEDS ORDERED: TAMS-11 PO (15:35)
[2018-01-13] MEDS ORDERED: hydrALAzine 20 MG/ML, 1ML IVPush PRN (16:30)
[2018-01-13] MEDS ORDERED: ONDANSETRON 2MG/ML, 2ML IVPush PRN (16:30)
[2018-01-13] MEDS ORDERED: morphine SULFATE 10 MG/ML, 1ML IVPush PRN (16:30)
[2018-01-13 17:24] LABS: FREE T4 (FREE THYROXINE) 0.79 ng/dL (0.76-1.46); THYROID STIMULATING HORMONE 4.51 mIU/L (0.358-3.740)
[2018-01-13] MEDS: GABAPENTIN 300 MG CAPSULE PO SCH ×2 (17:30→21:54)
[2018-01-13] MEDS ORDERED: NITROGLYCERIN 0.4 MG BOTTLE (25 TABS) SL SCH (17:30)
[2018-01-13] MEDS ORDERED: HEPARIN 5,000 UNITS/ML, 1ML IV ONE (18:00)
[2018-01-13] MEDS: HEPARIN 25,000 UNITS/500ML PMX 500 ML IV PRN (19:13)
[2018-01-13] MEDS: METOPROLOL TARTRATE 25 MG TABLET PO SCH (21:50)
[2018-01-13] MEDS: TAMSULOSIN 0.4 MG CAP.ER.24H PO SCH (21:52)
[2018-01-13 21:55] VITALS: BP 114/63
[2018-01-13 22:36] LABS: TROPONIN I < 0.015 ng/mL (0.000-0.045)
[2018-01-14 01:45] VITALS: BP 106/66
[2018-01-14] MEDS: HEPARIN 5,000 UNITS/ML, 1ML IV PRN (02:02)
[2018-01-14 04:42] LABS: ANION GAP 4 mmol/L (5-15); CALCIUM 8.4 mg/dL (8.5-10.1); CHLORIDE 105 mmol/L (98-107)
[2018-01-14 04:47] LABS: CREATININE 1.11 mg/dL (0.7-1.3); TROPONIN I < 0.015 ng/mL (0.000-0.045)
[2018-01-14 07:53] VITALS: BP 105/63
[2018-01-14] MEDS: METOPROLOL TARTRATE 25 MG TABLET PO SCH ×2 (08:42→22:50)
[2018-01-14] MEDS: MULTIVITAMINS/MINERALS TABLET PO SCH (08:42)
[2018-01-14] MEDS: CHOLECALCIFEROL 1,000 UNIT TABLET PO SCH (08:42)
[2018-01-14] MEDS: LOSARTAN 50MG TABLET PO SCH (08:42)
[2018-01-14] MEDS: GABAPENTIN 300 MG CAPSULE PO SCH ×3 (08:42→22:50)
[2018-01-14] MEDS: HYDROCHLOROTHIAZIDE 25 MG TABLET PO SCH (08:42)
[2018-01-14] MEDS: ASPIRIN 81 MG TABLET EC PO SCH (08:43)
[2018-01-14] MEDS ORDERED: PRAVASTATIN 40 MG TABLET PO SCH (09:00)
[2018-01-14 13:09] VITALS: BP 99/59
[2018-01-14] MEDS: HEPARIN 25,000 UNITS/500ML PMX 500 ML IV PRN (16:39)
[2018-01-14 19:00] VITALS: BP 95/53
[2018-01-14 22:46] VITALS: BP 111/65
[2018-01-14] MEDS: TAMSULOSIN 0.4 MG CAP.ER.24H PO SCH (22:50)
[2018-01-15 01:49] VITALS: BP 99/58
[2018-01-15] MEDS: HEPARIN 5,000 UNITS/ML, 1ML IV PRN ×2 (06:04→13:44)
[2018-01-15 06:52] VITALS: BP 107/71
[2018-01-15] MEDS ORDERED: REGADENOSON 0.4 MG/5 ML SYRINGE ONE (08:52)
[2018-01-15] MEDS: LOSARTAN 50MG TABLET PO SCH (08:55)
[2018-01-15] MEDS: METOPROLOL TARTRATE 25 MG TABLET PO SCH (08:56)
[2018-01-15] MEDS: GABAPENTIN 300 MG CAPSULE PO SCH ×2 (08:56→13:44)
[2018-01-15] MEDS: ASPIRIN 81 MG TABLET EC PO SCH (08:56)
[2018-01-15] MEDS: HYDROCHLOROTHIAZIDE 25 MG TABLET PO SCH (08:56)
[2018-01-15] MEDS: MULTIVITAMINS/MINERALS TABLET PO SCH (08:56)
[2018-01-15] MEDS: CHOLECALCIFEROL 1,000 UNIT TABLET PO SCH (08:57)
[2018-01-15] MEDS: HEPARIN 25,000 UNITS/500ML PMX 500 ML IV PRN (10:51)
[2018-01-15 12:20] VITALS: BP 135/76
[2018-01-15 13:57] LABS: MICROSCOPIC NOT IND
[2018-01-15 14:00] LABS: CULTURE INDICATED? NO
== END 2018-01-15 18:21 | disposition home or self-care (01) | DRG 280 ==
LOC: ED 15:51 → EDIP 15:52 → SUATTDRO 16:11 → ED 16:45 → 5SO 17:39
PROVIDERS: ADMIT Hospitalist; ATTEND Internal Medicine
DX: I21.9 Acute myocardial infarction, unspecified (principal); N17.0 Acute kidney failure with tubular necrosis; J96.10 Chronic respiratory failure, unspecified whether with hypoxia or hypercapnia; I25.119 Atherosclerotic heart disease of native coronary artery with unspecified angina pectoris; E78.5 Hyperlipidemia, unspecified; I10 Essential (primary) hypertension; I25.2 Old myocardial infarction; I48.91 Unspecified atrial fibrillation; J44.9 Chronic obstructive pulmonary disease, unspecified; Z82.49 Family history of ischemic heart disease and other diseases of the circulatory system; Z87.891 Personal history of nicotine dependence; Z85.51 Personal history of malignant neoplasm of bladder; Z90.49 Acquired absence of other specified parts of digestive tract; Z95.0 Presence of cardiac pacemaker; Z95.1 Presence of aortocoronary bypass graft; Z95.5 Presence of coronary angioplasty implant and graft; Z99.81 Dependence on supplemental oxygen; I25.9 Chronic ischemic heart disease, unspecified; E55.9 Vitamin D deficiency, unspecified
CPT/HCPCS: 36415; 71045; 78452; 80048; 80053; 81003; 83880; 84439; 84443; 84484; 85025; 85520; 85610; 93005; 93017; 93306; 99285; J1644; J2785; A9502; C9898

== ENCOUNTER 2018-02-28 10:56 | Inpatient (IN) | payer MEDICARE, OTHER ==
[~2018-02-28] VITALS: Ht 185.4 cm; Wt 109.3 kg
[~2018-02-28 10:56] MED LIST changes: +AMLO2.5T PO; +CALC-455 PO; +EPINEPHRINE 1 MG/ML, 1ML ONE; +FLUT1BLS3 INH; +GABA300C10 PO; +KETOROLAC 60 MG/2 ML ONE; +ROPIvacaine/PF 0.5%, 30 ML ONE; +SAW450CA7 PO; +SODIUM CHLORIDE 0.9% 100 ML ONE; +TAMS-11 PO; +TRANEXAMIC ACID 100 MG/ML, 10ML ONE; +VANCOMYCIN 1,000 MG ONE; +[UNRECOGNIZED DRUG - CODE] PO
[2018-02-28 11:43] VITALS: BP 119/70
[2018-02-28] MEDS ORDERED: GABAPENTIN 300 MG CAPSULE PO ONE (12:00)
[2018-02-28] MEDS: LACTATED RINGERS 1,000 ML IV SCH ×2 (12:00→12:22)
[2018-02-28] MEDS ORDERED: ACETAMINOPHEN 500 MG TABLET PO ONE (12:00)
[2018-02-28] MEDS ORDERED: FENTANYL PF 250 MCG/5ML ONE (12:01)
[2018-02-28] MEDS ORDERED: TAMSULOSIN 0.4 MG CAP.ER.24H PO ONE (12:30)
[2018-02-28] MEDS ORDERED: FAMOTIDINE 20 MG TABLET PO ONE (12:30)
[2018-02-28] MEDS ORDERED: KETAMINE 50 MG/ML, 10ML ONE (13:11)
[2018-02-28] MEDS ORDERED: LIDOCAINE 4%, 4 ML SYR/CANN TP ONE (13:11)
[2018-02-28] MEDS ORDERED: DEXAMETHASONE 4 MG/ML, 5ML ONE (13:11)
[2018-02-28] MEDS ORDERED: CEFAZOLIN 1,000 MG ONE (13:11)
[2018-02-28] MEDS ORDERED: SUCCINYLCHOLINE 20 MG/ML, 10ML ONE (13:11)
[2018-02-28] MEDS ORDERED: ONDANSETRON 2MG/ML, 2ML ONE (13:11)
[2018-02-28] MEDS ORDERED: PROPOFOL 10 MG/ML, 20ML ONE (13:11)
[2018-02-28] MEDS ORDERED: ROCURONIUM 10 MG/ML,10ML ONE (13:11)
[2018-02-28] MEDS ORDERED: DIPHENHYDRAMINE 25 MG CAPSULE PO PRN (13:30)
[2018-02-28] MEDS ORDERED: SCOPOLAMINE PATCH, 1.5MG PATCH.TD72 TD ONE (13:30)
[2018-02-28] MEDS ORDERED: ONDANSETRON 4 MG TABLET PO PRN (13:30)
[2018-02-28] MEDS ORDERED: OXYcodone IR 5MG TABLET PO PRN (13:30)
[2018-02-28] MEDS ORDERED: ONDANSETRON 2MG/ML, 2ML IV PRN (13:30)
[2018-02-28] MEDS ORDERED: ACETAMINOPHEN 325 MG TABLET PO PRN (13:30)
[2018-02-28] MEDS ORDERED: ALBUTEROL SULFATE 2.5 MG/3 ML NPPB PRN (14:00)
[2018-02-28] MEDS ORDERED: MORPHINE SULFATE 4 MG/ML, 1ML IVPush PRN (14:00)
[2018-02-28] MEDS ORDERED: PROMETHAZINE 25 MG/ML, 1ML IV PRN (14:00)
[2018-02-28] MEDS ORDERED: OXYcodone 5 MG/5 ML ORAL.SOL UDC PO PRN (14:00)
[2018-02-28] MEDS ORDERED: HALOPERIDOL 5 MG/ML IV PRN (14:00)
[2018-02-28] MEDS ORDERED: OXYcodone 5 MG/5 ML ORAL.SOL UDC ONE (14:31)
[2018-02-28] MEDS ORDERED: FENTANYL PF 100 MCG/2ML ONE ×2 (14:31→14:49)
[2018-02-28] MEDS: FENTANYL PF 100 MCG/2ML IV PRN ×4 (14:33→15:07)
[2018-02-28] MEDS ORDERED: MORPHINE SULFATE 4 MG/ML, 1ML ONE (14:39)
[2018-02-28] MEDS ORDERED: HYDROmorphone 2 MG/ML, 1ML ONE (14:49)
[2018-02-28] MEDS: HYDROmorphone 1 MG/ML, 1ML IV PRN ×3 (14:54→15:10)
[2018-02-28] MEDS ORDERED: Albuterol Sulfate (Proair Hfa) INH PRN (17:00)
[2018-02-28] MEDS ORDERED: SENNA/DOCUSATE TABLET PO PRN (17:00)
[2018-02-28] MEDS ORDERED: MAGNESIUM HYDROXIDE 8%, 30ML UDC PO PRN (17:00)
[2018-02-28] MEDS ORDERED: PRADAXA MC SCH (17:00)
[2018-02-28] MEDS ORDERED: NITROGLYCERIN 0.4 MG BOTTLE (25 TABS) SL PRN (17:00)
[2018-02-28] MEDS ORDERED: BISACODYL 10 MG SUPP PR PRN (17:00)
[2018-02-28] MEDS: NS + 20MEQ KCL 1,000 ML IV SCH (17:07)
[2018-02-28] MEDS: ASPIRIN 81 MG TABLET EC PO SCH (17:55)
[2018-02-28 19:30] VITALS: BP 121/65
[2018-02-28] MEDS ORDERED: ZOLPIDEM 5MG TABLET PO PRN (21:00)
[2018-02-28] MEDS ORDERED: TAMSULOSIN 0.4 MG CAP.ER.24H PO SCH (21:00)
[2018-02-28] MEDS ORDERED: PRAVASTATIN 40 MG TABLET PO SCH (21:00)
[2018-02-28] MEDS: METOPROLOL TARTRATE 25 MG TABLET PO SCH (21:04)
[2018-02-28] MEDS: HYDROcodone/APAP 5/325 TABLET PO PRN ×2 (21:04→22:50)
[2018-02-28] MEDS: DOCUSATE 100 MG CAPSULE PO SCH (21:05)
[2018-02-28] MEDS ORDERED: CEFAZOLIN 2,000 MG in SODIUM CHLORIDE 0.9% 50 ML IVPB SCH (21:30)
[2018-03-01 00:48] VITALS: BP 106/67
[2018-03-01] MEDS: CEFAZOLIN 2,000 MG in SODIUM CHLORIDE 0.9% 50 ML IVPB SCH ×2 (00:49→08:51)
[2018-03-01] MEDS: HYDROcodone/APAP 5/325 TABLET PO PRN ×2 (04:21→08:51)
[2018-03-01 04:25] VITALS: BP 116/68
[2018-03-01] MEDS: ASPIRIN 81 MG TABLET EC PO SCH (05:13)
[2018-03-01] MEDS: NS + 20MEQ KCL 1,000 ML IV SCH (05:30)
[2018-03-01] MEDS ORDERED: DEXAMETHASONE 4 MG/ML, 1ML IVPush SCH (06:00)
[2018-03-01 07:08] VITALS: BP 113/63
[2018-03-01] MEDS: DOCUSATE 100 MG CAPSULE PO SCH (07:31)
[2018-03-01] MEDS: METOPROLOL TARTRATE 25 MG TABLET PO SCH (07:32)
[2018-03-01] MEDS ORDERED: AMLODIPINE 2.5 MG TABLET PO SCH (09:00)
[2018-03-01] MEDS ORDERED: HYDROCHLOROTHIAZIDE 25 MG TABLET PO SCH (09:00)
[2018-03-01] MEDS ORDERED: Fluticasone/Umeclidin/Vilanter (Trelegy Ellipta 100-62.5-25) INH SCH (09:00)
[2018-03-01] MEDS ORDERED: DABIGATRAN 150 MG CAPSULE PO SCH (09:00)
[2018-03-01] MEDS ORDERED: LOSARTAN 50MG TABLET PO SCH (09:00)
[2018-03-01] MEDS ORDERED: OXYC5TAB3 PO (10:18)
[2018-03-01] MEDS ORDERED: MELO7.5T31 PO (10:20)
[2018-03-01] MEDS ORDERED: TRAM-47 PO (10:20)
[2018-03-01 12:25] VITALS: BP 98/63
== END 2018-03-01 12:33 | disposition home or self-care (01) | DRG 470 ==
LOC: ORIP 10:56 → 4NOR 16:00
PROVIDERS: ADMIT Orthopaedic Surgery; ATTEND Orthopaedic Surgery
PROC: 0SR906A Replacement of Right Hip Joint with Oxidized Zirconium on Polyethylene Synthetic Substitute, Uncemented, Open Approach (ICD-10-PCS; principal; 2018-02-28 13:00)
DX: M16.11 Unilateral primary osteoarthritis, right hip (principal); J44.9 Chronic obstructive pulmonary disease, unspecified; I25.10 Atherosclerotic heart disease of native coronary artery without angina pectoris; Z95.1 Presence of aortocoronary bypass graft
CPT/HCPCS: 36415; 72170; 76000; 85014; 85018; 86850; 86900; C1713; J0171; J0690; J1100; J1170; J1885; J2405; J2704; J2795; J3010; J3370; J3480; C1776; J0330; J7120

== ENCOUNTER → 2018-04-11 | Outpatient (CLI) | payer MEDICARE, OTHER ==
[~2018-04-11] MED LIST changes: -AMLO2.5T PO; +AMLO2.5T3 PO; -EPINEPHRINE 1 MG/ML, 1ML ONE; -KETOROLAC 60 MG/2 ML ONE; -LOSA100T6 PO; +LOSA100T7 PO; +MELO7.5T31 PO; +OMNIPAQUE 350 MG/ML, 100ML BOTTLE ONE; +OXYC5TAB3 PO; -ROPIvacaine/PF 0.5%, 30 ML ONE; -SODIUM CHLORIDE 0.9% 100 ML ONE; +TRAM-47 PO; -TRANEXAMIC ACID 100 MG/ML, 10ML ONE; -VANCOMYCIN 1,000 MG ONE
== END | disposition home or self-care (01) ==
LOC: CFH 10:45
PROVIDERS: ATTEND Internal Medicine Critical Care Medicine
DX: R91.1 Solitary pulmonary nodule (principal); R59.0 Localized enlarged lymph nodes; J44.9 Chronic obstructive pulmonary disease, unspecified
CPT/HCPCS: 71260; 82565; Q9967

== ENCOUNTER 2018-04-24 05:57 | Day surgery (SDC) | payer MEDICARE, OTHER ==
[~2018-04-24] VITALS: Ht 185.4 cm; Wt 101.0 kg
[~2018-04-24 05:57] MED LIST changes: -OMNIPAQUE 350 MG/ML, 100ML BOTTLE ONE
[2018-04-24 06:36] VITALS: BP 135/81
[2018-04-24] MEDS ORDERED: SODIUM CHLORIDE 0.9% 1,000 ML IV SCH (06:37)
[2018-04-24] MEDS ORDERED: LIDOCAINE-MPF 1%, 5ML ONE (07:28)
[2018-04-24] MEDS ORDERED: NALOXONE 1 MG/ML, 2ML ONE (07:48)
[2018-04-24] MEDS ORDERED: FLUMAZENIL 0.1 MG/1 ML, 5ML ONE (07:48)
[2018-04-24] MEDS ORDERED: MIDAZOLAM 1 MG/ML, 5ML ONE (07:48)
[2018-04-24] MEDS ORDERED: FENTANYL PF 100 MCG/2ML ONE (07:48)
== END 2018-04-24 12:15 | disposition home or self-care (01) ==
LOC: OUT 05:57
PROVIDERS: ATTEND Internal Medicine Critical Care Medicine
DX: J98.4 Other disorders of lung (principal); J44.9 Chronic obstructive pulmonary disease, unspecified; I25.10 Atherosclerotic heart disease of native coronary artery without angina pectoris; Z87.891 Personal history of nicotine dependence; Z85.51 Personal history of malignant neoplasm of bladder; Z98.890 Other specified postprocedural states; Z79.82 Long term (current) use of aspirin; Z87.39 Personal history of other diseases of the musculoskeletal system and connective tissue; Z79.899 Other long term (current) drug therapy; Z95.1 Presence of aortocoronary bypass graft
CPT/HCPCS: 32405; 71045; 77012; 88305; 88333; 99156; C2613; J2250; J3010; 99157; J2310

== ENCOUNTER → 2018-05-08 | Outpatient (CLI) | payer MEDICARE, OTHER | END | disposition home or self-care (01) | LOC: PETCFH 12:41 | PROVIDERS: ATTEND Nurse Practitioner Family | DX: I51.7 Cardiomegaly (principal); R91.8 Other nonspecific abnormal finding of lung field; I70.0 Atherosclerosis of aorta; K80.20 Calculus of gallbladder without cholecystitis without obstruction; C34.11 Malignant neoplasm of upper lobe, right bronchus or lung | CPT/HCPCS: 70450; 78815; A9552 ==

== ENCOUNTER → 2018-05-16 | Outpatient (CLI) | payer MEDICARE, OTHER | END | disposition home or self-care (01) | LOC: ROC 08:45 | PROVIDERS: ATTEND Radiology Radiation Oncology | DX: C34.11 Malignant neoplasm of upper lobe, right bronchus or lung (principal) | CPT/HCPCS: G0463 ==

== ENCOUNTER 2018-05-23 08:04 | Day surgery (SDC) | payer MEDICARE, OTHER ==
[~2018-05-23] VITALS: Ht 185.4 cm; Wt 102.1 kg
[2018-05-23 08:45] VITALS: BP 143/70
[2018-05-23] MEDS ORDERED: CEFAZOLIN PMX 1GM/50ML 50 ML ONE (08:56)
[2018-05-23] MEDS ORDERED: CEFAZOLIN PMX 1GM/50ML 50 ML IV ONE (09:00)
[2018-05-23] MEDS ORDERED: LIDOCAINE/PF 1%, 30ML ONE (11:39)
[2018-05-23] MEDS ORDERED: NALOXONE 1 MG/ML, 2ML ONE (12:05)
[2018-05-23] MEDS ORDERED: FENTANYL PF 100 MCG/2ML ONE ×2 (12:05)
[2018-05-23] MEDS ORDERED: FLUMAZENIL 0.1 MG/1 ML, 5ML ONE (12:05)
[2018-05-23] MEDS ORDERED: MIDAZOLAM 1 MG/ML, 5ML ONE (12:05)
[2018-05-23] MEDS ORDERED: VISIPAQUE 270 MG/ML, 50ML BOTTLE ONE (13:07)
== END 2018-05-23 14:15 | disposition home or self-care (01) ==
LOC: OUT 08:04
PROVIDERS: ATTEND Internal Medicine Hematology & Oncology
DX: Z45.2 Encounter for adjustment and management of vascular access device (principal); C34.31 Malignant neoplasm of lower lobe, right bronchus or lung; I25.2 Old myocardial infarction; I10 Essential (primary) hypertension; J44.9 Chronic obstructive pulmonary disease, unspecified; I25.10 Atherosclerotic heart disease of native coronary artery without angina pectoris; I48.91 Unspecified atrial fibrillation; E78.5 Hyperlipidemia, unspecified; Z95.5 Presence of coronary angioplasty implant and graft; Z98.890 Other specified postprocedural states; Z85.51 Personal history of malignant neoplasm of bladder; Z72.89 Other problems related to lifestyle; Z96.641 Presence of right artificial hip joint
CPT/HCPCS: 36561; 77001; 99156; 99157; C1751; C1769; C1788; C1894; J0690; J1642; J2250; J3010; J3490; Q9966; J2310

== ENCOUNTER → 2018-08-11 | Outpatient (CLI) | payer MEDICARE, OTHER ==
[~2018-08-11] MED LIST changes: -AMLO2.5T3 PO; +AMLO2.5T5 PO; -ASPI-621 PO; +ASPI81TA45 PO; +LOSA100T14 PO; -LOSA100T7 PO; +OMNIPAQUE 350 MG/ML, 100ML BOTTLE ONE
== END | disposition home or self-care (01) ==
LOC: CFH 11:02
PROVIDERS: ATTEND Internal Medicine Hematology & Oncology
DX: C34.11 Malignant neoplasm of upper lobe, right bronchus or lung (principal); K80.20 Calculus of gallbladder without cholecystitis without obstruction; N28.1 Cyst of kidney, acquired; N32.89 Other specified disorders of bladder; R91.8 Other nonspecific abnormal finding of lung field; R59.9 Enlarged lymph nodes, unspecified; Z95.0 Presence of cardiac pacemaker
CPT/HCPCS: 71260; 74177; Q9967

== ENCOUNTER → 2018-08-14 | Outpatient (CLI) | payer MEDICARE, OTHER ==
[~2018-08-14] MED LIST changes: -OMNIPAQUE 350 MG/ML, 100ML BOTTLE ONE
== END | disposition home or self-care (01) ==
LOC: ROC 07:15
PROVIDERS: ATTEND Radiology Radiation Oncology
DX: Z08 Encounter for follow-up examination after completed treatment for malignant neoplasm (principal); C34.11 Malignant neoplasm of upper lobe, right bronchus or lung
CPT/HCPCS: G0463

== ENCOUNTER 2018-08-21 14:18 | Observation (INO) | payer MEDICARE, OTHER ==
[~2018-08-21] VITALS: Ht 182.9 cm; Wt 98.1 kg
[2018-08-21] MEDS ORDERED: SODIUM CHLORIDE FLUSH 10ML SYR IVF ONE (14:30)
[2018-08-21 14:49] LABS: BASOPHILS # (AUTO) 0.04 x10^3/uL (0-0.1); BASOPHILS % (AUTO) 1 % (0-1); EOSINOPHILS # (AUTO) 0.39 x10^3/uL (0-0.4); EOSINOPHILS % (AUTO) 6 % (1-7); LYMPHOCYTES # (AUTO) 1.13 x10^3/uL (1-3.4); LYMPHOCYTES % (AUTO) 17 % (22-44); MD NO; MEAN CORPUSCULAR HEMOGLOBIN 32.1 pg (27.5-34.5); MEAN CORPUSCULAR HGB CONC 33.3 g/dL (33.2-36.2); MEAN CORPUSCULAR VOLUME 96.4 fL (81-97); MEAN PLATELET VOLUME 6.5 fL (7.4-10.4); MONOCYTES # (AUTO) 0.75 x10^3/uL (0.2-0.8); MONOCYTES % (AUTO) 11 % (2-9); NEUTROPHILS # (AUTO) 4.32 x10^3/uL (1.8-6.8); NEUTROPHILS % (AUTO) 65 % (42-75); PLATELET COUNT 247 x10^3/uL (130-400); RED BLOOD COUNT 4.05 x10^6/uL (4.38-5.82); RED CELL DISTRIBUTION WIDTH 18.5 % (9.4-14.8)
--- NOTE | 2018-08-21 14:56 | NUR ---
Assumed care of patient. C/O 11/14 CP radiaitn to left neck and right arm starting about 1 hour ago. Took one nitro prior to ED arrival. CP = 08/17 in ED. EKG done. Placed on NIBP, pulse ox and cardiac care unit nurse. Will continue to monitor.
[2018-08-21] MEDS ORDERED: MAALOX/HYOSCYAMINE/LIDOCAINE 45 ML BTL PO ONE (15:00)
[2018-08-21 15:01] LABS: INTERNATIONAL NORMALIZED RATIO 1.1 (0.93-1.1); PROTHROMBIN TIME 11.6 Seconds (9.6-11.5)
[2018-08-21 15:03] LABS: ALANINE AMINOTRANSFERASE 44 U/L (12-78); ALBUMIN 3.4 g/dL (3.4-5.0); ANION GAP 7 mmol/L (5-15); CALCIUM 9.1 mg/dL (8.5-10.1); CHLORIDE 104 mmol/L (98-107); CREATININE 1.19 mg/dL (0.7-1.3)
[2018-08-21 15:07] LABS: ALKALINE PHOSPHATASE 99 U/L (45-117); TOTAL PROTEIN 6.8 g/dL (6.4-8.2); TROPONIN I < 0.015 ng/mL (0.000-0.045)
[2018-08-21] MEDS ORDERED: MAALOX/HYOSCYAMINE/LIDOCAINE 45 ML BTL ONE (15:21)
--- NOTE | 2018-08-21 15:50 | NUR ---
Resting in [facility]. VSS. No needs.
[2018-08-21] MEDS ORDERED: SODIUM CHLORIDE FLUSH 10ML SYR IVF PRN (17:00)
--- NOTE | 2018-08-21 17:02 | NUR ---
Patient ambulated to the restroom with a steday gait.
[2018-08-21] MEDS ORDERED: hydrALAzine 20 MG/ML, 1ML IVPush PRN (17:30)
[2018-08-21] MEDS ORDERED: ONDANSETRON 2MG/ML, 2ML IVPush PRN (17:30)
[2018-08-21] MEDS ORDERED: TEMAZEPAM 15 MG CAPSULE PO PRN (17:30)
[2018-08-21] MEDS ORDERED: ACETAMINOPHEN 325 MG TABLET PO PRN (17:30)
[2018-08-21] MEDS ORDERED: POLYETHYLENE GLYCOL 17 GM PACKET PO PRN (17:30)
[2018-08-21] MEDS ORDERED: NITROGLYCERIN 0.4 MG BOTTLE (25 TABS) SL SCH (17:30)
[2018-08-21] MEDS ORDERED: MAALOX/HYOSCYAMINE/LIDOCAINE 45 ML BTL PO PRN (17:30)
[2018-08-21] MEDS ORDERED: morphine SULFATE 10 MG/ML, 1ML IVPush PRN (17:30)
--- NOTE | 2018-08-21 18:15 | NUR ---
Provided with meal tray.
--- NOTE | 2018-08-21 19:03 | NUR ---
Patient provided with hospital bed.
--- NOTE | 2018-08-21 20:00 | NUR ---
Report to JEAN Gonzalez.
[2018-08-21 20:25] VITALS: BP 121/69
[2018-08-21] MEDS ORDERED: PRAVASTATIN 40 MG TABLET PO SCH (21:00)
[2018-08-21] MEDS ORDERED: TAMSULOSIN 0.4 MG CAP.ER.24H PO SCH (21:00)
[2018-08-21] MEDS ORDERED: DABIGATRAN 150 MG CAPSULE PO SCH (21:00)
[2018-08-21 22:43] LABS: TROPONIN I < 0.015 ng/mL (0.000-0.045)
[2018-08-21] MEDS: METOPROLOL TARTRATE 25 MG TABLET PO SCH (23:33)
[2018-08-21] MEDS: PANTOPROZOLE 40MG TABLET PO SCH (23:33)
[2018-08-21 23:39] VITALS: BP 117/65
[2018-08-22 00:40] VITALS: BP 95/53
[2018-08-22 05:15] LABS: TROPONIN I < 0.015 ng/mL (0.000-0.045)
[2018-08-22] MEDS ORDERED: ASPIRIN 81 MG TABLET EC PO SCH (06:00)
[2018-08-22 07:40] VITALS: BP 113/65
[2018-08-22] MEDS: PANTOPROZOLE 40MG TABLET PO SCH (08:52)
[2018-08-22] MEDS: METOPROLOL TARTRATE 25 MG TABLET PO SCH (08:53)
[2018-08-22] MEDS ORDERED: CHOLECALCIFEROL 1,000 UNIT TABLET PO SCH (09:00)
[2018-08-22] MEDS ORDERED: LOSARTAN 50MG TABLET PO SCH (09:00)
[2018-08-22 14:00] VITALS: BP 94/54
[2018-08-22] MEDS ORDERED: ASPI81TA45 PO (15:37)
[2018-08-22] MEDS ORDERED: PANT40TA5 PO (15:37)
== END 2018-08-22 16:50 | disposition home or self-care (01) ==
LOC: SUATTDRO 16:29 → ED 16:33 → INTOOBSV 16:34 → UNDOADMOB 16:34 → EDIP 16:34 → ED 16:49 → EDIP 17:09 → 5SO 20:13 → DCLOUNGE 08-22 16:33 → 5SO 08-22 16:33 → DCLOUNGE 08-22 16:33 → UNDODISOB 08-22 16:50
PROVIDERS: ADMIT Internal Medicine; ATTEND Internal Medicine
DX: R07.9 Chest pain, unspecified (principal); K22.2 Esophageal obstruction; R55 Syncope and collapse; I25.10 Atherosclerotic heart disease of native coronary artery without angina pectoris; I48.2 Chronic atrial fibrillation; I10 Essential (primary) hypertension; E78.5 Hyperlipidemia, unspecified; J44.9 Chronic obstructive pulmonary disease, unspecified; E55.9 Vitamin D deficiency, unspecified; I49.5 Sick sinus syndrome; N40.0 Benign prostatic hyperplasia without lower urinary tract symptoms; Z82.49 Family history of ischemic heart disease and other diseases of the circulatory system; Z85.118 Personal history of other malignant neoplasm of bronchus and lung; Z85.51 Personal history of malignant neoplasm of bladder; Z87.891 Personal history of nicotine dependence; Z90.49 Acquired absence of other specified parts of digestive tract; Z92.21 Personal history of antineoplastic chemotherapy; Z92.3 Personal history of irradiation; Z95.0 Presence of cardiac pacemaker; Z95.1 Presence of aortocoronary bypass graft; Z95.5 Presence of coronary angioplasty implant and graft
CPT/HCPCS: 36415; 71045; 74220; 80053; 83880; 84443; 84484; 85025; 85610; 85730; 93005; 93306; 99284; G0378; 99285

== ENCOUNTER 2018-09-28 19:09 | Inpatient (IN) | payer MEDICARE, OTHER ==
[~2018-09-28] VITALS: Ht 182.9 cm; Wt 103.7 kg
[~2018-09-28 19:09] MED LIST changes: +PANT40TA5 PO
[2018-09-28 19:50] LABS: BASOPHILS # (AUTO) 0.07 x10^3/uL (0-0.1); BASOPHILS % (AUTO) 1 % (0-1); EOSINOPHILS % (AUTO) 3 % (1-7); LYMPHOCYTES # (AUTO) 1.05 x10^3/uL (1-3.4); LYMPHOCYTES % (AUTO) 15 % (22-44); MD NO; MEAN CORPUSCULAR HGB CONC 33.6 g/dL (33.2-36.2); MEAN CORPUSCULAR VOLUME 98.3 fL (81-97); MEAN PLATELET VOLUME 6.9 fL (7.4-10.4); MONOCYTES # (AUTO) 0.64 x10^3/uL (0.2-0.8); MONOCYTES % (AUTO) 9 % (2-9); NEUTROPHILS # (AUTO) 5.25 x10^3/uL (1.8-6.8); NEUTROPHILS % (AUTO) 73 % (42-75); PLATELET COUNT 237 x10^3/uL (130-400); RED BLOOD COUNT 4.51 x10^6/uL (4.38-5.82); RED CELL DISTRIBUTION WIDTH 13.8 % (9.4-14.8)
[2018-09-28 19:53] LABS: ALANINE AMINOTRANSFERASE 398 U/L (12-78); ALBUMIN 3.6 g/dL (3.4-5.0); ANION GAP 6 mmol/L (5-15); CALCIUM 9.2 mg/dL (8.5-10.1); CHLORIDE 101 mmol/L (98-107); CREATININE 1.32 mg/dL (0.7-1.3)
[2018-09-28 19:58] LABS: ALKALINE PHOSPHATASE 210 U/L (45-117); BILIRUBIN,TOTAL 2.5 mg/dL (0.2-1.0); TOTAL PROTEIN 7.1 g/dL (6.4-8.2); TROPONIN I < 0.015 ng/mL (0.000-0.045)
[2018-09-28] MEDS ORDERED: ONDANSETRON 2MG/ML, 2ML IVPush ONE (20:00)
[2018-09-28] MEDS ORDERED: MORPHINE SULFATE 4 MG/ML, 1ML IVPush PRN (20:00)
[2018-09-28] MEDS ORDERED: ONDANSETRON 2MG/ML, 2ML ONE (20:06)
[2018-09-28] MEDS ORDERED: MORPHINE SULFATE 4 MG/ML, 1ML ONE (20:06)
--- NOTE | 2018-09-28 20:15 | NUR ---
IV SITE STARTED, PT MEDICATED PER MAR. PT TO CT
[2018-09-28] MEDS ORDERED: HYDROmorphone 2 MG/ML, 1ML IVPush PRN (20:30)
[2018-09-28] MEDS ORDERED: HYDROmorphone 1 MG/ML, 1ML AMP ONE (20:30)
--- NOTE | 2018-09-28 20:34 | NUR ---
PROVIDED PT WITH URINE CUP, PT STATED HE IS UNABLE TO VOID AT THIS TIME. PT MEDICATED PER MAR. PT TO ULTRASOUND
[2018-09-28] MEDS ORDERED: SODIUM CHLORIDE 0.9% 1,000ML IVBOLUS ONE (21:00)
[2018-09-28] MEDS ORDERED: PIPERACILLIN/TAZO/PMX 3.375GM 50 ML IV ONE (21:30)
[2018-09-28] MEDS ORDERED: PIPERACILLIN/TAZO/PMX 3.375GM 50 ML ONE (21:34)
[2018-09-28] MEDS ORDERED: OMNIPAQUE 350 MG/ML, 100ML BOTTLE ONE (21:39)
[2018-09-28 21:50] LABS: MICROSCOPIC NOT IND
[2018-09-28 21:51] LABS: CULTURE INDICATED? NO
[2018-09-28] MEDS ORDERED: VIT1TABL32 PO (22:04)
[2018-09-28] MEDS ORDERED: AMLO10TA8 PO (22:04)
--- NOTE | 2018-09-28 22:06 | NUR ---
PT RESTING ON GURNEY, STATED PAIN IS BETTER, MONITORS IN PLACE, SIDERAILS UP X2, CALL LIGHT WITHIN REACH.
[2018-09-28 23:30] VITALS: BP 145/69
[2018-09-28] MEDS ORDERED: PROMETHAZINE 25 MG/ML, 1ML IM PRN (23:30)
[2018-09-28] MEDS ORDERED: hydrALAzine 20 MG/ML, 1ML IVPush PRN (23:30)
[2018-09-28] MEDS ORDERED: morphine SULFATE 10 MG/ML, 1ML IVPush PRN (23:30)
[2018-09-28] MEDS ORDERED: DOCUSATE 100 MG CAPSULE PO PRN (23:30)
[2018-09-28] MEDS: LACTATED RINGERS 1,000 ML IV SCH (23:30)
[2018-09-28] MEDS ORDERED: BISACODYL 10 MG SUPP PR PRN (23:30)
[2018-09-28] MEDS ORDERED: POLYETHYLENE GLYCOL 17 GM PACKET PO PRN (23:30)
[2018-09-28] MEDS ORDERED: ONDANSETRON ODT 4 MG PO PRN (23:30)
[2018-09-29] MEDS ORDERED: NITROGLYCERIN 0.4 MG BOTTLE (25 TABS) SL SCH
[2018-09-29 00:02] LABS: FREE T4 (FREE THYROXINE) 0.91 ng/dL (0.76-1.46); THYROID STIMULATING HORMONE 4.73 mIU/L (0.358-3.740)
[2018-09-29 00:19] LABS: INTERNATIONAL NORMALIZED RATIO 1.09 (0.93-1.1); PROTHROMBIN TIME 11.4 Seconds (9.6-11.5)
[2018-09-29 00:25] LABS: HEMOGLOBIN A1C 5.4 % (4.2-6.3)
[2018-09-29] MEDS: METOPROLOL TARTRATE 25 MG TABLET PO SCH ×3 (00:29→20:48)
[2018-09-29] MEDS: PANTOPROZOLE 40MG TABLET PO SCH ×3 (00:29→20:48)
[2018-09-29] MEDS: LACTOBACILLUS CHEW TABLET PO SCH ×4 (00:29→20:47)
[2018-09-29] MEDS: OXYcodone IR 5MG TABLET PO PRN ×3 (00:29→20:48)
[2018-09-29] MEDS: ATORVASTATIN 20 MG TABLET PO SCH ×2 (00:30→20:47)
[2018-09-29] MEDS: ALBUTEROL/IPRATROPIUM 2.5MG/0.5MG, 3 ML NPPB SCH ×4 (03:00→23:00)
[2018-09-29 03:01] VITALS: BP 99/57
[2018-09-29] MEDS: ASPIRIN 81 MG TABLET EC PO SCH (05:25)
[2018-09-29] MEDS: PIPERACILLIN/TAZO/PMX 3.375GM 50 ML IV SCH ×3 (05:25→16:42)
[2018-09-29] MEDS: LACTATED RINGERS 1,000 ML IV SCH ×3 (05:26→20:48)
[2018-09-29 06:07] LABS: BASOPHILS # (AUTO) 0.05 x10^3/uL (0-0.1); BASOPHILS % (AUTO) 1 % (0-1); EOSINOPHILS # (AUTO) 0.19 x10^3/uL (0-0.4); EOSINOPHILS % (AUTO) 4 % (1-7); LYMPHOCYTES % (AUTO) 12 % (22-44); MD NO; MEAN CORPUSCULAR HEMOGLOBIN 32.7 pg (27.5-34.5); MEAN CORPUSCULAR HGB CONC 33.7 g/dL (33.2-36.2); MEAN CORPUSCULAR VOLUME 97.1 fL (81-97); MEAN PLATELET VOLUME 6.3 fL (7.4-10.4); MONOCYTES # (AUTO) 0.62 x10^3/uL (0.2-0.8); MONOCYTES % (AUTO) 12 % (2-9); NEUTROPHILS # (AUTO) 3.56 x10^3/uL (1.8-6.8); NEUTROPHILS % (AUTO) 71 % (42-75); PLATELET COUNT 175 x10^3/uL (130-400); RED BLOOD COUNT 4.03 x10^6/uL (4.38-5.82); RED CELL DISTRIBUTION WIDTH 14.3 % (9.4-14.8)
[2018-09-29 06:16] LABS: CHLORIDE 108 mmol/L (98-107)
[2018-09-29 06:29] LABS: ALANINE AMINOTRANSFERASE 356 U/L (12-78); ALBUMIN 3.2 g/dL (3.4-5.0); ALKALINE PHOSPHATASE 210 U/L (45-117); ANION GAP 5 mmol/L (5-15); CALCIUM 8.6 mg/dL (8.5-10.1); CHOL/HDL RATIO 2.5; CHOLESTEROL, TOTAL 121 mg/dL (140-239); HDL CHOL % 40 % (26-37); HDL CHOLESTEROL (DIRECT) 49 mg/dL (40-60); LDL CHOLESTEROL,CALCULATED 60 mg/dL (54-169); LDL/HDL RATIO 1.2 (0.5-3.0); TOTAL PROTEIN 6.2 g/dL (6.4-8.2); TRIGLYCERIDES 62 mg/dL (50-200); VLDL CHOLESTEROL 12 mg/dL (0-25)
[2018-09-29 06:44] VITALS: BP 113/58
[2018-09-29] MEDS: BUDESONIDE 0.5 MG/2 ML INHA INH SCH ×2 (07:00→23:00)
[2018-09-29] MEDS ORDERED: Fluticasone/Umeclidin/Vilanter (Trelegy Ellipta 100-62.5-25) INH SCH (09:00)
[2018-09-29] MEDS ORDERED: HYDROCHLOROTHIAZIDE 25 MG TABLET PO SCH (09:00)
[2018-09-29] MEDS: CHOLECALCIFEROL 1,000 UNIT TABLET PO SCH (09:00)
[2018-09-29] MEDS: AMLODIPINE 2.5 MG TABLET PO SCH (10:08)
[2018-09-29] MEDS: MULTIVITAMINS/MINERALS TABLET PO SCH (10:09)
[2018-09-29] MEDS: LOSARTAN 50MG TABLET PO SCH (10:09)
[2018-09-29 12:30] VITALS: BP 91/45
[2018-09-29 19:32] VITALS: BP 104/50
[2018-09-29] MEDS: TAMSULOSIN 0.4 MG CAP.ER.24H PO SCH (20:48)
[2018-09-30] MEDS: PIPERACILLIN/TAZO/PMX 3.375GM 50 ML IV SCH ×4 (00:29→18:56)
[2018-09-30 02:53] VITALS: BP 93/53
[2018-09-30] MEDS: ALBUTEROL/IPRATROPIUM 2.5MG/0.5MG, 3 ML NPPB SCH ×4 (03:00→19:41)
[2018-09-30] MEDS: ASPIRIN 81 MG TABLET EC PO SCH (05:41)
[2018-09-30] MEDS: LACTATED RINGERS 1,000 ML IV SCH ×2 (05:41→15:01)
[2018-09-30 06:12] LABS: BASOPHILS # (AUTO) 0.02 x10^3/uL (0-0.1); BASOPHILS % (AUTO) 0 % (0-1); EOSINOPHILS # (AUTO) 0.17 x10^3/uL (0-0.4); EOSINOPHILS % (AUTO) 4 % (1-7); LYMPHOCYTES # (AUTO) 0.61 x10^3/uL (1-3.4); LYMPHOCYTES % (AUTO) 13 % (22-44); MD NO; MEAN CORPUSCULAR HEMOGLOBIN 33.2 pg (27.5-34.5); MEAN CORPUSCULAR HGB CONC 34.3 g/dL (33.2-36.2); MEAN CORPUSCULAR VOLUME 96.7 fL (81-97); MEAN PLATELET VOLUME 6.9 fL (7.4-10.4); MONOCYTES # (AUTO) 0.53 x10^3/uL (0.2-0.8); MONOCYTES % (AUTO) 11 % (2-9); NEUTROPHILS # (AUTO) 3.53 x10^3/uL (1.8-6.8); NEUTROPHILS % (AUTO) 73 % (42-75); PLATELET COUNT 152 x10^3/uL (130-400); RED BLOOD COUNT 3.73 x10^6/uL (4.38-5.82); RED CELL DISTRIBUTION WIDTH 13.9 % (9.4-14.8)
[2018-09-30 06:21] LABS: CHLORIDE 105 mmol/L (98-107)
[2018-09-30 06:29] LABS: ALANINE AMINOTRANSFERASE 235 U/L (12-78); ALBUMIN 2.9 g/dL (3.4-5.0); ALKALINE PHOSPHATASE 241 U/L (45-117); ANION GAP 6 mmol/L (5-15); CALCIUM 8.4 mg/dL (8.5-10.1); CREATININE 1.18 mg/dL (0.7-1.3); TOTAL PROTEIN 5.6 g/dL (6.4-8.2)
[2018-09-30] MEDS: BUDESONIDE 0.5 MG/2 ML INHA INH SCH ×2 (06:45→19:41)
[2018-09-30 07:27] VITALS: BP 98/47
[2018-09-30] MEDS: OXYcodone IR 5MG TABLET PO PRN (09:26)
[2018-09-30] MEDS: PANTOPROZOLE 40MG TABLET PO SCH ×2 (09:37→20:56)
[2018-09-30] MEDS: MULTIVITAMINS/MINERALS TABLET PO SCH ×2 (09:37→11:53)
[2018-09-30] MEDS: CHOLECALCIFEROL 1,000 UNIT TABLET PO SCH (09:37)
[2018-09-30] MEDS: LACTOBACILLUS CHEW TABLET PO SCH ×3 (09:37→20:56)
[2018-09-30 09:49] VITALS: BP 102/60
[2018-09-30] MEDS: LOSARTAN 50MG TABLET PO SCH (09:59)
[2018-09-30] MEDS: METOPROLOL TARTRATE 25 MG TABLET PO SCH ×2 (09:59→21:00)
[2018-09-30 11:48] VITALS: BP 101/54
[2018-09-30] MEDS: AMLODIPINE 2.5 MG TABLET PO SCH (11:52)
[2018-09-30 13:42] VITALS: BP 110/78
[2018-09-30 19:28] VITALS: BP 131/61
[2018-09-30] MEDS: ATORVASTATIN 20 MG TABLET PO SCH (20:56)
[2018-09-30] MEDS: TAMSULOSIN 0.4 MG CAP.ER.24H PO SCH (20:56)
[2018-10-01] MEDS: ASPIRIN 81 MG TABLET EC PO SCH
[2018-10-01] MEDS: PIPERACILLIN/TAZO/PMX 3.375GM 50 ML IV SCH ×5 (00:24→23:38)
[2018-10-01 02:22] VITALS: BP 135/65
[2018-10-01] MEDS: ALBUTEROL/IPRATROPIUM 2.5MG/0.5MG, 3 ML NPPB SCH ×4 (03:00→19:02)
[2018-10-01] MEDS: BUDESONIDE 0.5 MG/2 ML INHA INH SCH ×2 (07:25→19:02)
[2018-10-01 07:47] VITALS: BP 125/55
[2018-10-01] MEDS: AMLODIPINE 2.5 MG TABLET PO SCH ×2 (09:00→09:17)
[2018-10-01] MEDS: PANTOPROZOLE 40MG TABLET PO SCH ×2 (09:16→20:01)
[2018-10-01] MEDS: LOSARTAN 50MG TABLET PO SCH (09:16)
[2018-10-01] MEDS: LACTOBACILLUS CHEW TABLET PO SCH ×3 (09:16→20:00)
[2018-10-01] MEDS: METOPROLOL TARTRATE 25 MG TABLET PO SCH ×2 (09:17→20:01)
[2018-10-01] MEDS: CHOLECALCIFEROL 1,000 UNIT TABLET PO SCH (09:17)
[2018-10-01] MEDS: D5%-LACTATED RINGERS 1,000 ML IV SCH (12:53)
[2018-10-01] MEDS ORDERED: FENTANYL PF 100 MCG/2ML ONE (13:50)
[2018-10-01] MEDS ORDERED: SUCCINYLCHOLINE 20 MG/ML, 10ML ONE (13:51)
[2018-10-01] MEDS ORDERED: PROPOFOL 10 MG/ML, 20ML ONE (13:51)
[2018-10-01 14:00] LABS: ALANINE AMINOTRANSFERASE 172 U/L (12-78); ALBUMIN 3.1 g/dL (3.4-5.0); ANION GAP 7 mmol/L (5-15); CALCIUM 8.5 mg/dL (8.5-10.1); CHLORIDE 105 mmol/L (98-107); CREATININE 0.96 mg/dL (0.7-1.3)
[2018-10-01] MEDS ORDERED: FENTANYL PF 100 MCG/2ML IV PRN (14:00)
[2018-10-01] MEDS ORDERED: ONDANSETRON 2MG/ML, 2ML IV PRN (14:00)
[2018-10-01 14:02] LABS: ALKALINE PHOSPHATASE 254 U/L (45-117); TOTAL PROTEIN 6.2 g/dL (6.4-8.2)
[2018-10-01] MEDS ORDERED: OMNIPAQUE 350 MG/ML, 50 ML BOTTLE ONE (14:40)
[2018-10-01 15:49] VITALS: BP 160/74
[2018-10-01] MEDS: OXYcodone IR 5MG TABLET PO PRN (16:03)
[2018-10-01 19:26] VITALS: BP 154/65
[2018-10-01] MEDS: TAMSULOSIN 0.4 MG CAP.ER.24H PO SCH (20:00)
[2018-10-01] MEDS: ATORVASTATIN 20 MG TABLET PO SCH (20:01)
[2018-10-02 02:09] VITALS: BP 134/70
[2018-10-02] MEDS: ALBUTEROL/IPRATROPIUM 2.5MG/0.5MG, 3 ML NPPB SCH ×3 (02:56→20:15)
[2018-10-02 04:47] LABS: BASOPHILS # (AUTO) 0.01 x10^3/uL (0-0.1); BASOPHILS % (AUTO) 0 % (0-1); EOSINOPHILS # (AUTO) 0.12 x10^3/uL (0-0.4); EOSINOPHILS % (AUTO) 3 % (1-7); LYMPHOCYTES # (AUTO) 0.38 x10^3/uL (1-3.4); LYMPHOCYTES % (AUTO) 9 % (22-44); MD NO; MEAN CORPUSCULAR HEMOGLOBIN 32.9 pg (27.5-34.5); MEAN CORPUSCULAR VOLUME 96.9 fL (81-97); MEAN PLATELET VOLUME 6.9 fL (7.4-10.4); MONOCYTES # (AUTO) 0.54 x10^3/uL (0.2-0.8); MONOCYTES % (AUTO) 13 % (2-9); NEUTROPHILS # (AUTO) 3.22 x10^3/uL (1.8-6.8); NEUTROPHILS % (AUTO) 75 % (42-75); PLATELET COUNT 140 x10^3/uL (130-400); RED BLOOD COUNT 3.54 x10^6/uL (4.38-5.82); RED CELL DISTRIBUTION WIDTH 13.5 % (9.4-14.8)
[2018-10-02 05:02] LABS: ALBUMIN 2.7 g/dL (3.4-5.0); ANION GAP 5 mmol/L (5-15); CALCIUM 8.1 mg/dL (8.5-10.1); CHLORIDE 105 mmol/L (98-107)
[2018-10-02 05:06] LABS: ALANINE AMINOTRANSFERASE 141 U/L (12-78); ALKALINE PHOSPHATASE 245 U/L (45-117); BILIRUBIN,TOTAL 1.8 mg/dL (0.2-1.0); CREATININE 0.87 mg/dL (0.7-1.3); TOTAL PROTEIN 5.6 g/dL (6.4-8.2)
[2018-10-02] MEDS: PIPERACILLIN/TAZO/PMX 3.375GM 50 ML IV SCH ×3 (05:36→18:16)
[2018-10-02] MEDS: D5%-LACTATED RINGERS 1,000 ML IV SCH (05:37)
[2018-10-02] MEDS: ASPIRIN 81 MG TABLET EC PO SCH (05:43)
[2018-10-02 07:58] VITALS: BP 146/75
[2018-10-02] MEDS: AMLODIPINE 2.5 MG TABLET PO SCH (08:20)
[2018-10-02] MEDS: CHOLECALCIFEROL 1,000 UNIT TABLET PO SCH (08:28)
[2018-10-02] MEDS: PANTOPROZOLE 40MG TABLET PO SCH ×2 (08:29→21:57)
[2018-10-02] MEDS: MULTIVITAMINS/MINERALS TABLET PO SCH (08:29)
[2018-10-02] MEDS: LOSARTAN 50MG TABLET PO SCH (08:29)
[2018-10-02] MEDS: METOPROLOL TARTRATE 25 MG TABLET PO SCH ×2 (08:29→21:58)
[2018-10-02] MEDS: LACTOBACILLUS CHEW TABLET PO SCH ×3 (08:29→21:58)
[2018-10-02] MEDS: BUDESONIDE 0.5 MG/2 ML INHA INH SCH ×2 (08:50→21:00)
[2018-10-02] MEDS ORDERED: LABETALOL 5MG/ML, 20ML IV PRN (09:00)
[2018-10-02] MEDS ORDERED: hydrALAzine 20 MG/ML, 1ML IV PRN (09:00)
[2018-10-02] MEDS ORDERED: METOPROLOL 1 MG/ML, 5ML IV PRN (09:00)
[2018-10-02] MEDS ORDERED: HALOPERIDOL 5 MG/ML IV PRN (09:00)
[2018-10-02] MEDS ORDERED: OXYcodone 5 MG/5 ML ORAL.SOL UDC PO PRN (09:00)
[2018-10-02] MEDS ORDERED: DIPHENHYDRAMINE 50 MG/ML, 1ML IVPush PRN (09:00)
[2018-10-02] MEDS ORDERED: PROCHLORPERAZINE 5 MG/ML, 2ML IV PRN (09:00)
[2018-10-02] MEDS ORDERED: PROMETHAZINE 25 MG/ML, 1ML IV PRN (09:00)
[2018-10-02] MEDS ORDERED: MEPERIDINE/PF 25MG/0.5ML IVPush PRN (09:00)
[2018-10-02] MEDS ORDERED: BUPIVACAINE/PF-EPI 0.5% 1:200K ONE (09:42)
[2018-10-02] MEDS ORDERED: FENTANYL PF 100 MCG/2ML ONE ×4 (12:50→15:37)
[2018-10-02 13:26] VITALS: BP 134/73
[2018-10-02] MEDS ORDERED: OXYcodone 5 MG/5 ML ORAL.SOL UDC ONE (14:46)
[2018-10-02] MEDS ORDERED: HYDROmorphone 1 MG/ML, 1ML AMP ONE ×2 (14:46→15:20)
[2018-10-02] MEDS: FENTANYL PF 100 MCG/2ML IV PRN ×5 (14:48→15:39)
[2018-10-02] MEDS: HYDROmorphone 2 MG/ML, 1ML IVPush PRN ×6 (14:50→15:51)
[2018-10-02] MEDS ORDERED: PROPOFOL 10 MG/ML, 20ML ONE (15:59)
[2018-10-02] MEDS ORDERED: NEOSTIGMINE 1 MG/ML, 10ML ONE (15:59)
[2018-10-02] MEDS ORDERED: GLYCOPYRROLATE 0.2MG/1ML, 5ML ONE (15:59)
[2018-10-02] MEDS ORDERED: ROCURONIUM 10MG/ML,5ML ONE (15:59)
[2018-10-02] MEDS ORDERED: SUCCINYLCHOLINE 20 MG/ML, 10ML ONE (15:59)
[2018-10-02] MEDS ORDERED: DEXAMETHASONE 4 MG/ML, 1ML ONE (15:59)
[2018-10-02] MEDS ORDERED: ONDANSETRON 2MG/ML, 2ML ONE (15:59)
[2018-10-02] MEDS ORDERED: MIDAZOLAM 1 MG/ML, 2ML ONE (16:06)
[2018-10-02] MEDS: MIDAZOLAM 1 MG/ML, 2ML IV PRN ×2 (16:11→16:13)
[2018-10-02] MEDS: OXYcodone IR 5MG TABLET PO PRN ×2 (18:17→22:47)
[2018-10-02 19:53] VITALS: BP 154/77
[2018-10-02] MEDS ORDERED: SODIUM CHLORIDE 0.9% 1,000 ML IV SCH (20:00)
[2018-10-02] MEDS: TAMSULOSIN 0.4 MG CAP.ER.24H PO SCH (21:58)
[2018-10-02] MEDS: ATORVASTATIN 20 MG TABLET PO SCH (21:58)
[2018-10-03] MEDS: PIPERACILLIN/TAZO/PMX 3.375GM 50 ML IV SCH ×4 (00:21→18:22)
[2018-10-03 00:28] VITALS: BP 142/76
[2018-10-03] MEDS: morphine SULFATE 10 MG/ML, 1ML IVPush PRN ×2 (00:42→05:55)
[2018-10-03 03:13] VITALS: BP 114/56
[2018-10-03] MEDS: OXYcodone IR 5MG TABLET PO PRN ×3 (04:06→21:02)
[2018-10-03 05:32] LABS: ALANINE AMINOTRANSFERASE 146 U/L (12-78); ALBUMIN 2.9 g/dL (3.4-5.0); ANION GAP 4 mmol/L (5-15); CALCIUM 8.5 mg/dL (8.5-10.1); CHLORIDE 104 mmol/L (98-107)
[2018-10-03 05:34] LABS: ALKALINE PHOSPHATASE 233 U/L (45-117); BILIRUBIN,TOTAL 1.2 mg/dL (0.2-1.0); TOTAL PROTEIN 6.3 g/dL (6.4-8.2)
[2018-10-03 05:37] LABS: MD NO
[2018-10-03] MEDS: ASPIRIN 81 MG TABLET EC PO SCH (05:49)
[2018-10-03 07:53] LABS: BASOPHILS # (AUTO) 0.01 x10^3/uL (0-0.1); BASOPHILS % (AUTO) 0 % (0-1); EOSINOPHILS % (AUTO) 0 % (1-7); HEMOGRAM NOTE RECHECKED; LYMPHOCYTES # (AUTO) 0.34 x10^3/uL (1-3.4); LYMPHOCYTES % (AUTO) 6 % (22-44); MEAN CORPUSCULAR HGB CONC 34.2 g/dL (33.2-36.2); MEAN CORPUSCULAR VOLUME 96.6 fL (81-97); MEAN PLATELET VOLUME 7.1 fL (7.4-10.4); MONOCYTES # (AUTO) 0.46 x10^3/uL (0.2-0.8); MONOCYTES % (AUTO) 8 % (2-9); NEUTROPHILS # (AUTO) 4.85 x10^3/uL (1.8-6.8); NEUTROPHILS % (AUTO) 86 % (42-75); PLATELET COUNT 154 x10^3/uL (130-400); RED BLOOD COUNT 3.76 x10^6/uL (4.38-5.82); RED CELL DISTRIBUTION WIDTH 13.8 % (9.4-14.8)
[2018-10-03] MEDS: LOSARTAN 50MG TABLET PO SCH (08:30)
[2018-10-03] MEDS: AMLODIPINE 2.5 MG TABLET PO SCH (08:30)
[2018-10-03] MEDS: MULTIVITAMINS/MINERALS TABLET PO SCH (08:31)
[2018-10-03] MEDS: CHOLECALCIFEROL 1,000 UNIT TABLET PO SCH (08:31)
[2018-10-03] MEDS: PANTOPROZOLE 40MG TABLET PO SCH ×2 (08:31→21:03)
[2018-10-03] MEDS: METOPROLOL TARTRATE 25 MG TABLET PO SCH ×2 (08:31→20:49)
[2018-10-03] MEDS: LACTOBACILLUS CHEW TABLET PO SCH ×3 (08:31→21:01)
[2018-10-03] MEDS: ALBUTEROL/IPRATROPIUM 2.5MG/0.5MG, 3 ML NPPB SCH ×2 (08:55→21:00)
[2018-10-03] MEDS: BUDESONIDE 0.5 MG/2 ML INHA INH SCH ×2 (08:55→21:00)
[2018-10-03 09:25] VITALS: BP 119/67
[2018-10-03 19:52] VITALS: BP 95/54
[2018-10-03] MEDS ORDERED: DABIGATRAN 150 MG CAPSULE PO SCH (21:00)
[2018-10-03] MEDS: ATORVASTATIN 20 MG TABLET PO SCH (21:02)
[2018-10-03] MEDS: TAMSULOSIN 0.4 MG CAP.ER.24H PO SCH (21:02)
[2018-10-03] MEDS: DABIGATRAN 150 MG CAPSULE PO SCH (21:38)
[2018-10-04] MEDS: PIPERACILLIN/TAZO/PMX 3.375GM 50 ML IV SCH ×2 (00:23→05:39)
[2018-10-04 01:42] VITALS: BP 99/58
[2018-10-04] MEDS: OXYcodone IR 5MG TABLET PO PRN (05:10)
[2018-10-04 05:30] LABS: ALBUMIN 2.8 g/dL (3.4-5.0); ANION GAP 5 mmol/L (5-15); CALCIUM 8.3 mg/dL (8.5-10.1); CHLORIDE 105 mmol/L (98-107)
[2018-10-04 05:34] LABS: ALANINE AMINOTRANSFERASE 122 U/L (12-78); ALKALINE PHOSPHATASE 197 U/L (45-117); BILIRUBIN,TOTAL 1.5 mg/dL (0.2-1.0); CREATININE 1.04 mg/dL (0.7-1.3); TOTAL PROTEIN 6.1 g/dL (6.4-8.2)
[2018-10-04] MEDS: ASPIRIN 81 MG TABLET EC PO SCH (05:38)
[2018-10-04] MEDS: ONDANSETRON 2MG/ML, 2ML IVPush PRN ×3 (05:53→20:27)
[2018-10-04] MEDS: ALBUTEROL/IPRATROPIUM 2.5MG/0.5MG, 3 ML NPPB SCH ×2 (07:00→23:00)
[2018-10-04] MEDS: BUDESONIDE 0.5 MG/2 ML INHA INH SCH ×2 (07:00→23:00)
[2018-10-04 07:55] VITALS: BP 105/62
[2018-10-04] MEDS: METOPROLOL TARTRATE 25 MG TABLET PO SCH ×2 (09:00→22:03)
[2018-10-04] MEDS: LOSARTAN 50MG TABLET PO SCH (09:00)
[2018-10-04] MEDS: AMLODIPINE 2.5 MG TABLET PO SCH (09:00)
[2018-10-04] MEDS: MULTIVITAMINS/MINERALS TABLET PO SCH (10:10)
[2018-10-04] MEDS: PANTOPROZOLE 40MG TABLET PO SCH ×2 (10:10→22:04)
[2018-10-04] MEDS: CHOLECALCIFEROL 1,000 UNIT TABLET PO SCH (10:10)
[2018-10-04] MEDS: LACTOBACILLUS CHEW TABLET PO SCH ×3 (10:11→22:04)
[2018-10-04 14:37] VITALS: BP 128/73
[2018-10-04] MEDS ORDERED: BISACODYL 10 MG SUPP PR PRN (17:30)
[2018-10-04] MEDS ORDERED: SIMETHICONE 80 MG CHEW TAB PO ONE (18:00)
[2018-10-04 18:59] VITALS: BP 131/57
[2018-10-04] MEDS ORDERED: SODIUM CHLORIDE 0.9% 1,000 ML IV SCH (20:00)
[2018-10-04] MEDS: ATORVASTATIN 20 MG TABLET PO SCH (22:03)
[2018-10-04] MEDS: TAMSULOSIN 0.4 MG CAP.ER.24H PO SCH (22:03)
[2018-10-04] MEDS: DABIGATRAN 150 MG CAPSULE PO SCH (22:04)
[2018-10-05 00:07] VITALS: BP 130/57
[2018-10-05 04:54] LABS: BASOPHILS # (AUTO) 0.02 x10^3/uL (0-0.1); BASOPHILS % (AUTO) 0 % (0-1); EOSINOPHILS # (AUTO) 0.17 x10^3/uL (0-0.4); EOSINOPHILS % (AUTO) 3 % (1-7); LYMPHOCYTES # (AUTO) 0.49 x10^3/uL (1-3.4); LYMPHOCYTES % (AUTO) 9 % (22-44); MD NO; MEAN CORPUSCULAR HEMOGLOBIN 32.8 pg (27.5-34.5); MEAN CORPUSCULAR HGB CONC 33.9 g/dL (33.2-36.2); MEAN CORPUSCULAR VOLUME 96.8 fL (81-97); MEAN PLATELET VOLUME 7.1 fL (7.4-10.4); MONOCYTES # (AUTO) 0.52 x10^3/uL (0.2-0.8); MONOCYTES % (AUTO) 10 % (2-9); NEUTROPHILS # (AUTO) 4.14 x10^3/uL (1.8-6.8); NEUTROPHILS % (AUTO) 78 % (42-75); PLATELET COUNT 155 x10^3/uL (130-400); RED BLOOD COUNT 3.57 x10^6/uL (4.38-5.82); RED CELL DISTRIBUTION WIDTH 13.7 % (9.4-14.8)
[2018-10-05 05:05] LABS: CHLORIDE 107 mmol/L (98-107)
[2018-10-05 05:13] LABS: ALANINE AMINOTRANSFERASE 111 U/L (12-78); ALBUMIN 2.7 g/dL (3.4-5.0); ALKALINE PHOSPHATASE 161 U/L (45-117); ANION GAP 5 mmol/L (5-15); CREATININE 0.82 mg/dL (0.7-1.3); TOTAL PROTEIN 5.8 g/dL (6.4-8.2)
[2018-10-05] MEDS: ASPIRIN 81 MG TABLET EC PO SCH (05:55)
[2018-10-05] MEDS: ALBUTEROL/IPRATROPIUM 2.5MG/0.5MG, 3 ML NPPB SCH (08:00)
[2018-10-05] MEDS: BUDESONIDE 0.5 MG/2 ML INHA INH SCH (08:00)
[2018-10-05 08:17] VITALS: BP 132/66
[2018-10-05] MEDS: MULTIVITAMINS/MINERALS TABLET PO SCH (09:39)
[2018-10-05] MEDS: LACTOBACILLUS CHEW TABLET PO SCH ×2 (09:39→17:03)
[2018-10-05] MEDS: METOPROLOL TARTRATE 25 MG TABLET PO SCH (09:39)
[2018-10-05] MEDS: PANTOPROZOLE 40MG TABLET PO SCH (09:39)
[2018-10-05] MEDS: CHOLECALCIFEROL 1,000 UNIT TABLET PO SCH (09:39)
[2018-10-05] MEDS: AMLODIPINE 2.5 MG TABLET PO SCH (09:39)
[2018-10-05] MEDS: LOSARTAN 50MG TABLET PO SCH (09:49)
[2018-10-05 12:51] VITALS: BP 143/69
== END 2018-10-05 17:25 | disposition home or self-care (01) | DRG 417 ==
LOC: ED 20:55 → EDIP 22:30 → 3NE 23:06 → 3NW 09-30 05:53
PROVIDERS: ADMIT Internal Medicine; ATTEND Internal Medicine
PROC: BF101ZZ Fluoroscopy of Bile Ducts using Low Osmolar Contrast (ICD-10-PCS; 2018-10-01)
PROC: 0D748ZZ Dilation of Esophagogastric Junction, Via Natural or Artificial Opening Endoscopic (ICD-10-PCS; 2018-10-01)
PROC: 0F798ZZ Dilation of Common Bile Duct, Via Natural or Artificial Opening Endoscopic (ICD-10-PCS; principal; 2018-10-01 14:30)
PROC: 0FT44ZZ Resection of Gallbladder, Percutaneous Endoscopic Approach (ICD-10-PCS; 2018-10-02)
DX: K85.10 Biliary acute pancreatitis without necrosis or infection (principal); N17.0 Acute kidney failure with tubular necrosis; K80.61 Calculus of gallbladder and bile duct with cholecystitis, unspecified, with obstruction; D68.69 Other thrombophilia; E87.2 Acidosis; J44.0 Chronic obstructive pulmonary disease with (acute) lower respiratory infection; K56.7 Ileus, unspecified; E55.9 Vitamin D deficiency, unspecified; E78.5 Hyperlipidemia, unspecified; I12.9 Hypertensive chronic kidney disease with stage 1 through stage 4 chronic kidney disease, or unspecified chronic kidney disease; I25.10 Atherosclerotic heart disease of native coronary artery without angina pectoris; I48.91 Unspecified atrial fibrillation; K22.2 Esophageal obstruction; K76.0 Fatty (change of) liver, not elsewhere classified; Z96.651 Presence of right artificial knee joint; N18.9 Chronic kidney disease, unspecified; N40.0 Benign prostatic hyperplasia without lower urinary tract symptoms; Z79.01 Long term (current) use of anticoagulants; Z79.02 Long term (current) use of antithrombotics/antiplatelets; Z82.49 Family history of ischemic heart disease and other diseases of the circulatory system; I25.2 Old myocardial infarction; Z85.118 Personal history of other malignant neoplasm of bronchus and lung; Z85.51 Personal history of malignant neoplasm of bladder; Z87.891 Personal history of nicotine dependence; Z92.21 Personal history of antineoplastic chemotherapy; Z92.3 Personal history of irradiation; Z95.1 Presence of aortocoronary bypass graft; Z95.5 Presence of coronary angioplasty implant and graft; Z81.1 Family history of alcohol abuse and dependence; Z99.81 Dependence on supplemental oxygen
CPT/HCPCS: 36415; 71046; 74018; 74177; 74328; 76700; 80053; 80061; 81003; 83036; 83605; 83690; 83735; 83880; 84100; 84439; 84443; 84484; 85025; 85610; 88304; 93005; 94640; 96374; 96375; C1729; G0378; J1100; J1170; J2250; J2405; J2543; J2550; J2704; J2710; J3010; J3490; J7620; J7626; Q9967; C1725; C1769; J0330; J2270; J7030; J7120; J7121

== ENCOUNTER 2018-10-15 07:07 | Day surgery (SDC) | payer MEDICARE, OTHER ==
[~2018-10-15] VITALS: Ht 182.9 cm; Wt 92.9 kg
[~2018-10-15 07:07] MED LIST changes: +AMLO10TA8 PO; +ASPI-496 PO
[2018-10-15 07:35] VITALS: BP 145/90
[2018-10-15] MEDS ORDERED: LACTATED RINGERS 1,000 ML IV SCH (07:37)
[2018-10-15] MEDS ORDERED: LIDOCAINE-MPF 1%, 2ML INFIL ONE (08:00)
[2018-10-15] MEDS ORDERED: PROPOFOL 10 MG/ML, 20ML ONE (10:26)
[2018-10-15] MEDS ORDERED: ALBUTEROL SULFATE 2.5 MG/3 ML NPPB PRN (11:00)
[2018-10-15] MEDS ORDERED: MORPHINE SULFATE 4 MG/ML, 1ML IVPush PRN (11:00)
[2018-10-15] MEDS ORDERED: HALOPERIDOL 5 MG/ML IV PRN (11:00)
[2018-10-15] MEDS ORDERED: ONDANSETRON ODT 8 MG PO PRN (11:00)
[2018-10-15] MEDS ORDERED: HYDROmorphone 2 MG/ML, 1ML IVPush PRN (11:00)
[2018-10-15] MEDS ORDERED: OXYcodone 5 MG/5 ML ORAL.SOL UDC PO PRN (11:00)
[2018-10-15] MEDS ORDERED: MIDAZOLAM 1 MG/ML, 2ML IV PRN (11:00)
[2018-10-15] MEDS ORDERED: hydrALAzine 20 MG/ML, 1ML IV PRN (11:00)
[2018-10-15] MEDS ORDERED: LABETALOL 5MG/ML, 20ML IV PRN (11:00)
[2018-10-15] MEDS ORDERED: EPHEDRINE 50 MG/ML, 1ML IVPush PRN (11:00)
[2018-10-15] MEDS ORDERED: DIAZEPAM 5 MG/ML, 2ML IVPush PRN (11:00)
[2018-10-15] MEDS ORDERED: ONDANSETRON 2MG/ML, 2ML IV PRN (11:00)
[2018-10-15] MEDS ORDERED: PROMETHAZINE 25 MG/ML, 1ML IV PRN (11:00)
[2018-10-15] MEDS ORDERED: PROMETHAZINE 12.5 MG SUPP PR PRN (11:00)
[2018-10-15] MEDS ORDERED: MEPERIDINE/PF 25MG/0.5ML IVPush PRN (11:00)
[2018-10-15] MEDS ORDERED: FENTANYL PF 100 MCG/2ML IV PRN (11:00)
== END 2018-10-15 12:30 | disposition home or self-care (01) ==
LOC: OUT 07:07
PROVIDERS: ATTEND Internal Medicine
DX: Z09 Encounter for follow-up examination after completed treatment for conditions other than malignant neoplasm (principal); K62.1 Rectal polyp; K63.5 Polyp of colon; K57.30 Diverticulosis of large intestine without perforation or abscess without bleeding; K20.8 Other esophagitis; K22.2 Esophageal obstruction; K64.8 Other hemorrhoids; I25.10 Atherosclerotic heart disease of native coronary artery without angina pectoris; K21.9 Gastro-esophageal reflux disease without esophagitis; I48.91 Unspecified atrial fibrillation; E78.5 Hyperlipidemia, unspecified; I10 Essential (primary) hypertension; Z85.118 Personal history of other malignant neoplasm of bronchus and lung; Z86.010 Personal history of colon polyps; Z95.1 Presence of aortocoronary bypass graft
CPT/HCPCS: 43248; 45380; 88305; 93005; J2704; J7120

== ENCOUNTER → 2018-11-13 | Outpatient (CLI) | payer MEDICARE, OTHER | END | disposition home or self-care (01) | LOC: ROC 08:03 | PROVIDERS: ATTEND Radiology Radiation Oncology | DX: C34.11 Malignant neoplasm of upper lobe, right bronchus or lung (principal); K20.9 Esophagitis, unspecified; K62.1 Rectal polyp; K64.8 Other hemorrhoids; K57.90 Diverticulosis of intestine, part unspecified, without perforation or abscess without bleeding; K22.2 Esophageal obstruction | CPT/HCPCS: G0463 ==

== ENCOUNTER → 2018-12-08 | Outpatient (CLI) | payer MEDICARE, OTHER ==
[~2018-12-08] MED LIST changes: +OMNIPAQUE 350 MG/ML, 75ML BOTTLE ONE
== END | disposition home or self-care (01) ==
LOC: CFH 13:00
PROVIDERS: ATTEND Internal Medicine Hematology & Oncology
DX: C34.11 Malignant neoplasm of upper lobe, right bronchus or lung (principal); R91.8 Other nonspecific abnormal finding of lung field; R59.0 Localized enlarged lymph nodes
CPT/HCPCS: 71260; Q9967

== ENCOUNTER 2019-01-01 05:58 | Day surgery (SDC) | payer MEDICARE, OTHER ==
[~2019-01-01] VITALS: Ht 182.9 cm; Wt 98.6 kg
[~2019-01-01 05:58] MED LIST changes: -OMNIPAQUE 350 MG/ML, 75ML BOTTLE ONE
[2019-01-01] MEDS ORDERED: SODIUM CHLORIDE 0.9% 1,000 ML IV SCH (06:53)
[2019-01-01] MEDS ORDERED: NAPR220T77 PO (07:18)
[2019-01-01] MEDS ORDERED: ACET325T14 PO (07:18)
[2019-01-01 07:19] VITALS: BP 129/69
[2019-01-01] MEDS ORDERED: FENTANYL PF 100 MCG/2ML ONE (08:18)
[2019-01-01] MEDS ORDERED: MIDAZOLAM 1 MG/ML, 5ML ONE (08:18)
[2019-01-01] MEDS ORDERED: FLUMAZENIL 0.1 MG/1 ML, 5ML ONE (08:19)
[2019-01-01] MEDS ORDERED: NALOXONE 1 MG/ML, 2ML ONE (08:19)
== END 2019-01-01 10:15 | disposition home or self-care (01) ==
LOC: OUT 05:58
PROVIDERS: ATTEND Internal Medicine Hematology & Oncology
DX: C79.51 Secondary malignant neoplasm of bone (principal); C34.31 Malignant neoplasm of lower lobe, right bronchus or lung; I10 Essential (primary) hypertension; I25.10 Atherosclerotic heart disease of native coronary artery without angina pectoris; J44.9 Chronic obstructive pulmonary disease, unspecified; I25.2 Old myocardial infarction; E78.5 Hyperlipidemia, unspecified; I48.91 Unspecified atrial fibrillation; Z87.891 Personal history of nicotine dependence; Z95.1 Presence of aortocoronary bypass graft; Z90.49 Acquired absence of other specified parts of digestive tract; Z95.0 Presence of cardiac pacemaker
CPT/HCPCS: 62267; 70460; 77012; 88305; 99156; 99157; J2250; J3010; J7030; Q9967; 88341; 88342; J2310

== ENCOUNTER → 2019-01-09 | Outpatient (CLI) | payer MEDICARE, OTHER ==
[~2019-01-09] MED LIST changes: +ACET325T14 PO; +NAPR220T77 PO
== END | disposition home or self-care (01) ==
LOC: ROC 08:57
PROVIDERS: ATTEND Radiology Radiation Oncology
DX: C79.49 Secondary malignant neoplasm of other parts of nervous system (principal); M48.8X6 Other specified spondylopathies, lumbar region; R91.8 Other nonspecific abnormal finding of lung field; Z85.118 Personal history of other malignant neoplasm of bronchus and lung
CPT/HCPCS: G0463

== ENCOUNTER 2019-04-27 08:37 | Inpatient (IN) | payer MEDICARE, OTHER ==
[~2019-04-27] VITALS: Ht 182.9 cm; Wt 97.6 kg
[2019-04-27] VITALS (17 sets, daily range): BP systolic 115–150; BP diastolic 50–70
[~2019-04-27 08:37] MED LIST changes: +OMEP40CA42 PO; -OMEP40CA6 PO; -TIZA4TAB PO; +TIZA4TAB2 PO
[2019-04-27] MEDS ORDERED: SODIUM CHLORIDE FLUSH 10ML SYR IVF ONE (09:00)
[2019-04-27] MEDS ORDERED: ASPIRIN 81 MG TABLET CHEW PO ONE (09:00)
[2019-04-27] MEDS ORDERED: ASPIRIN 81 MG TABLET CHEW ONE (09:02)
--- NOTE | 2019-04-27 09:45 | NUR ---
GENERALIZED WEAKNESS, INCREASED SOB AND CHILLS DEVELOPING THE LAST FEW DAYS
[2019-04-27 09:52] LABS: ALANINE AMINOTRANSFERASE 13 U/L (12-78); ALBUMIN 3.5 g/dL (3.4-5.0); ANION GAP 9 mmol/L (5-15); CALCIUM 8.3 mg/dL (8.5-10.1); CHLORIDE 106 mmol/L (98-107)
[2019-04-27 09:56] LABS: ALKALINE PHOSPHATASE 91 U/L (45-117); BILIRUBIN,TOTAL 0.7 mg/dL (0.2-1.0); TOTAL PROTEIN 6.5 g/dL (6.4-8.2); TROPONIN I < 0.015 ng/mL (0.000-0.045)
[2019-04-27 10:10] LABS: MEAN CORPUSCULAR HEMOGLOBIN 32.4 pg (27.5-34.5); MEAN CORPUSCULAR HGB CONC 35.3 g/dL (33.2-36.2); MEAN CORPUSCULAR VOLUME 91.8 fL (81-97); RED BLOOD COUNT 1.46 x10^6/uL (4.38-5.82); RED CELL DISTRIBUTION WIDTH 21.6 % (9.4-14.8)
[2019-04-27 10:19] LABS: PLATELET COUNT 10 x10^3/uL (130-400)
[2019-04-27] MEDS ORDERED: FLUT1BLS3 IH (10:19)
[2019-04-27] MEDS ORDERED: APIX5TAB PO (10:19)
[2019-04-27] MEDS ORDERED: FOLI0.8T2 PO (10:19)
[2019-04-27] MEDS ORDERED: PANT20TA3 PO (10:19)
[2019-04-27 10:31] LABS: MD YES
[2019-04-27 10:32] LABS: <PLATELET ESTIMATE> DECREASED; <PLT MORPHOLOGY> NORMAL PLT MORPH; LYMPH#(MANUAL) 0.11 x10^3/uL (1-3.4); LYMPHS% (MANUAL) 28 % (22-44); MONOS#(MANUAL) 0.02 x10^3/uL (0.3-2.7); MONOS% (MANUAL) 4 % (2-9); SEG#(MANUAL) 0.27 x10^3/uL (1.8-6.8); SEGS% (MANUAL) 68 % (42-75)
[2019-04-27 10:33] LABS: ANISOCYTOSIS 1+; OVALOCYTES 1+
--- NOTE | 2019-04-27 11:15 | NUR ---
CONSENT OBTAINED FOR BLOOD TRANSFUSION. AT BEDSIDE. PT SPEAKING FULL SENTENCES, PURSE LIPPED BREATHING
--- NOTE | 2019-04-27 11:48 | NUR ---
PLATELETS INFUSING AND HOSPITALIST AT BEDSIDE.
[2019-04-27] MEDS: SODIUM CHLORIDE 0.9% 1,000 ML IV SCH ×2 (11:57→16:50)
[2019-04-27] MEDS ORDERED: LABETALOL 5MG/ML, 20ML IVPush PRN (12:00)
[2019-04-27] MEDS ORDERED: DOCUSATE 100 MG CAPSULE PO PRN (12:00)
[2019-04-27] MEDS ORDERED: ACETAMINOPHEN 325 MG TABLET PO PRN (12:00)
[2019-04-27] MEDS ORDERED: POLYETHYLENE GLYCOL 17 GM PACKET PO PRN (12:00)
[2019-04-27] MEDS ORDERED: NITROGLYCERIN SINGLE TAB 0.4 MG SL SCH (12:30)
[2019-04-27] MEDS ORDERED: ALBUTEROL SULFATE 2.5 MG/3 ML NPPB PRN (12:30)
--- NOTE | 2019-04-27 12:40 | NUR ---
REPORT TO JEAN MILIAN. PT TO BE TRANSPORTED
[2019-04-27 15:26] LABS: MICROSCOPIC AUTO
[2019-04-27 15:30] LABS: CULTURE INDICATED? YES
[2019-04-27 15:46] LABS: % IRON SATURATION 92 % (20-55); IRON LEVEL 278 mcg/dL (65-175); TOTAL IRON BINDING CAPACITY 303 mcg/dL (250-450)
[2019-04-27 15:49] LABS: TROPONIN I 0.017 ng/mL (0.000-0.045)
[2019-04-27 18:18] LABS: MD YES; MEAN CORPUSCULAR HGB CONC 35.7 g/dL (33.2-36.2); MEAN CORPUSCULAR VOLUME 92.4 fL (81-97); MEAN PLATELET VOLUME 7.2 fL (7.4-10.4); RED BLOOD COUNT 1.48 x10^6/uL (4.38-5.82); RED CELL DISTRIBUTION WIDTH 20.9 % (9.4-14.8)
[2019-04-27 18:27] LABS: PLATELET COUNT 31 x10^3/uL (130-400)
[2019-04-27 18:32] LABS: <PLATELET ESTIMATE> DECREASED; ANISOCYTOSIS 1+; LYMPH#(MANUAL) 0.13 x10^3/uL (1-3.4); LYMPHS% (MANUAL) 32 % (22-44); MONOS#(MANUAL) 0.02 x10^3/uL (0.3-2.7); MONOS% (MANUAL) 4 % (2-9); OVALOCYTES 1+; SEG#(MANUAL) 0.26 x10^3/uL (1.8-6.8); SEGS% (MANUAL) 64 % (42-75)
[2019-04-27 18:33] LABS: <PLT MORPHOLOGY> NORMAL PLT MORPH
[2019-04-27] MEDS: ALBUTEROL/IPRATROPIUM 2.5MG/0.5MG, 3 ML NPPB SCH (20:05)
[2019-04-27] MEDS: BUDESONIDE 0.5 MG/2 ML INHA NPPB SCH (20:05)
[2019-04-27] MEDS: PRAVASTATIN 40 MG TABLET PO SCH (20:18)
[2019-04-27] MEDS: TAMSULOSIN 0.4 MG CAP.ER.24H PO SCH (20:18)
[2019-04-27] MEDS: METOPROLOL TARTRATE 25 MG TABLET PO SCH (20:18)
[2019-04-27] MEDS ORDERED: APIXABAN 5 MG TABLET PO SCH (21:00)
[2019-04-27 21:09] LABS: TROPONIN I 0.032 ng/mL (0.000-0.045)
[2019-04-27 21:16] LABS: MEAN CORPUSCULAR HEMOGLOBIN 31.8 pg (27.5-34.5); MEAN CORPUSCULAR HGB CONC 34.1 g/dL (33.2-36.2); MEAN CORPUSCULAR VOLUME 93.1 fL (81-97); RED BLOOD COUNT 1.85 x10^6/uL (4.38-5.82); RED CELL DISTRIBUTION WIDTH 19.1 % (9.4-14.8)
[2019-04-27 21:39] LABS: MD YES
[2019-04-27 21:56] LABS: BASOS#(MANUAL) 0.01 x10^3/uL (0-0.1); BASOS% (MANUAL) 1 % (0-1); EOS#(MANUAL) 0.01 x10^3/uL (0.0-0.4); EOS% (MANUAL) 1 % (1-7); LYMPH#(MANUAL) 0.39 x10^3/uL (1-3.4); LYMPHS% (MANUAL) 65 % (22-44); MONOS#(MANUAL) 0.04 x10^3/uL (0.3-2.7); MONOS% (MANUAL) 6 % (2-9); REACTIVE LYMPHS # (MANUAL) 0.04 x10^3/uL (0-0); REACTIVE LYMPHS % (MANUAL) 6 % (0-0); SEG#(MANUAL) 0.13 x10^3/uL (1.8-6.8); SEGS% (MANUAL) 21 % (42-75)
[2019-04-27 22:00] LABS: MEAN PLATELET VOLUME 7.1 fL (7.4-10.4)
[2019-04-27 22:02] LABS: PLATELET COUNT 32 x10^3/uL (130-400)
[2019-04-27 22:03] LABS: <PLATELET ESTIMATE> DECREASED; SMALL PLATELETS 1+
[2019-04-27 22:06] LABS: <RBC MORPHOLOGY> NORMAL
[2019-04-28] VITALS (9 sets, daily range): BP systolic 107–147; BP diastolic 51–71
[2019-04-28] MEDS: ALBUTEROL/IPRATROPIUM 2.5MG/0.5MG, 3 ML NPPB SCH ×4 (03:00→21:00)
[2019-04-28 03:33] LABS: ANION GAP 5 mmol/L (5-15); CALCIUM 8.2 mg/dL (8.5-10.1); CHLORIDE 110 mmol/L (98-107); CREATININE 1.15 mg/dL (0.7-1.3)
[2019-04-28 03:37] LABS: MEAN CORPUSCULAR HEMOGLOBIN 31.3 pg (27.5-34.5); MEAN CORPUSCULAR HGB CONC 34.5 g/dL (33.2-36.2); MEAN CORPUSCULAR VOLUME 90.6 fL (81-97); MEAN PLATELET VOLUME 6.9 fL (7.4-10.4); RED BLOOD COUNT 1.98 x10^6/uL (4.38-5.82); RED CELL DISTRIBUTION WIDTH 19.3 % (9.4-14.8)
[2019-04-28 03:39] LABS: PLATELET COUNT 30 x10^3/uL (130-400)
[2019-04-28] MEDS ORDERED: FUROSEMIDE 20 MG/2 ML IV ONE (04:30)
[2019-04-28 04:35] LABS: EOS#(MANUAL) 0.02 x10^3/uL (0.0-0.4); EOS% (MANUAL) 3 % (1-7); LYMPH#(MANUAL) 0.23 x10^3/uL (1-3.4); LYMPHS% (MANUAL) 39 % (22-44); MD YES; MONOS#(MANUAL) 0.08 x10^3/uL (0.3-2.7); MONOS% (MANUAL) 14 % (2-9); NRBC % (MANUAL) 1 % (0-1); SEG#(MANUAL) 0.26 x10^3/uL (1.8-6.8); SEGS% (MANUAL) 44 % (42-75)
[2019-04-28 04:37] LABS: <PLATELET ESTIMATE> DECREASED; <PLT MORPHOLOGY> NORMAL PLT MORPH; <RBC MORPHOLOGY> NORMAL
[2019-04-28] MEDS: BUDESONIDE 0.5 MG/2 ML INHA NPPB SCH ×2 (06:27→21:00)
[2019-04-28] MEDS: CHOLECALCIFEROL 1,000 UNIT TABLET PO SCH (08:26)
[2019-04-28] MEDS: LOSARTAN 50MG TABLET PO SCH (08:26)
[2019-04-28] MEDS: FOLIC ACID 1 MG TABLET PO SCH (08:26)
[2019-04-28] MEDS: AMLODIPINE 10 MG TAB PO SCH (08:26)
[2019-04-28] MEDS: PANTOPRAZOLE 20MG TABLET PO SCH (08:26)
[2019-04-28] MEDS: METOPROLOL TARTRATE 25 MG TABLET PO SCH ×2 (08:27→19:58)
[2019-04-28] MEDS ORDERED: MAGNESIUM SULFATE 4 GM in SODIUM CHLORIDE 0.9% 100 ML IV ONE (09:00)
[2019-04-28] MEDS: TEMPLATE NON-FORMULARY MED. (Fluticasone/Umeclidin/Vilanter (Trelegy Ellipta 100-62.5-25 INH SCH (09:00)
[2019-04-28 09:01] LABS: MEAN CORPUSCULAR HEMOGLOBIN 30.9 pg (27.5-34.5); MEAN CORPUSCULAR HGB CONC 34.5 g/dL (33.2-36.2); MEAN CORPUSCULAR VOLUME 89.6 fL (81-97); RED BLOOD COUNT 2.45 x10^6/uL (4.38-5.82); RED CELL DISTRIBUTION WIDTH 18.8 % (9.4-14.8)
[2019-04-28 09:25] LABS: PLATELET COUNT 28 x10^3/uL (130-400)
[2019-04-28 09:26] LABS: MD YES
[2019-04-28 09:29] LABS: LYMPH#(MANUAL) 0.22 x10^3/uL (1-3.4); LYMPHS% (MANUAL) 36 % (22-44); MEAN PLATELET VOLUME 7.8 fL (7.4-10.4); SEG#(MANUAL) 0.24 x10^3/uL (1.8-6.8); SEGS% (MANUAL) 40 % (42-75)
[2019-04-28 09:30] LABS: MONOS#(MANUAL) 0.13 x10^3/uL (0.3-2.7); MONOS% (MANUAL) 22 % (2-9); REACTIVE LYMPHS # (MANUAL) 0.01 x10^3/uL (0-0); REACTIVE LYMPHS % (MANUAL) 2 % (0-0)
[2019-04-28 09:31] LABS: <PLATELET ESTIMATE> DECREASED; <PLT MORPHOLOGY> NORMAL PLT MORPH; <RBC MORPHOLOGY> NORMAL
[2019-04-28 15:23] LABS: MEAN CORPUSCULAR HEMOGLOBIN 30.4 pg (27.5-34.5); MEAN CORPUSCULAR HGB CONC 34.1 g/dL (33.2-36.2); MEAN CORPUSCULAR VOLUME 89.1 fL (81-97); MEAN PLATELET VOLUME 6.6 fL (7.4-10.4); RED BLOOD COUNT 2.37 x10^6/uL (4.38-5.82); RED CELL DISTRIBUTION WIDTH 19.4 % (9.4-14.8)
[2019-04-28 15:25] LABS: PLATELET COUNT 28 x10^3/uL (130-400)
[2019-04-28] MEDS: TBO-FILGRASTIM 480 MCG/0.8 ML SQ SCH (15:29)
[2019-04-28 15:50] LABS: MD YES
[2019-04-28 15:58] LABS: BAND#(MANUAL) 0.02 x10^3/uL; BANDS%(MANUAL) 4 % (0-7); EOS#(MANUAL) 0.02 x10^3/uL (0.0-0.4); EOS% (MANUAL) 4 % (1-7); LYMPHS% (MANUAL) 34 % (22-44); MONOS% (MANUAL) 16 % (2-9); REACTIVE LYMPHS # (MANUAL) 0.01 x10^3/uL (0-0); REACTIVE LYMPHS % (MANUAL) 2 % (0-0); SEG#(MANUAL) 0.24 x10^3/uL (1.8-6.8); SEGS% (MANUAL) 40 % (42-75)
[2019-04-28 15:59] LABS: <PLATELET ESTIMATE> DECREASED; <PLT MORPHOLOGY> NORMAL PLT MORPH; ANISOCYTOSIS 1+; OVALOCYTES 1+
[2019-04-28] MEDS: TAMSULOSIN 0.4 MG CAP.ER.24H PO SCH (19:58)
[2019-04-28] MEDS: PRAVASTATIN 40 MG TABLET PO SCH (19:58)
[2019-04-28 22:31] LABS: MEAN CORPUSCULAR HEMOGLOBIN 31.2 pg (27.5-34.5); MEAN CORPUSCULAR HGB CONC 34.5 g/dL (33.2-36.2); MEAN CORPUSCULAR VOLUME 90.4 fL (81-97); RED BLOOD COUNT 2.27 x10^6/uL (4.38-5.82); RED CELL DISTRIBUTION WIDTH 18.6 % (9.4-14.8)
[2019-04-28 22:41] LABS: MEAN PLATELET VOLUME 7.9 fL (7.4-10.4); PLATELET COUNT 21 x10^3/uL (130-400)
[2019-04-28 23:45] LABS: MD YES
[2019-04-28 23:49] LABS: BAND#(MANUAL) 0.03 x10^3/uL; BANDS%(MANUAL) 4 % (0-7); EOS#(MANUAL) 0.01 x10^3/uL (0.0-0.4); EOS% (MANUAL) 2 % (1-7); LYMPH#(MANUAL) 0.22 x10^3/uL (1-3.4); LYMPHS% (MANUAL) 32 % (22-44); MONOS#(MANUAL) 0.14 x10^3/uL (0.3-2.7); MONOS% (MANUAL) 20 % (2-9); SEG#(MANUAL) 0.29 x10^3/uL (1.8-6.8); SEGS% (MANUAL) 42 % (42-75)
[2019-04-28 23:50] LABS: <PLATELET ESTIMATE> DECREASED; <PLT MORPHOLOGY> NORMAL PLT MORPH; ANISOCYTOSIS 1+; OVALOCYTES 1+
[2019-04-29 00:54] VITALS: BP 96/41
[2019-04-29] MEDS: ALBUTEROL/IPRATROPIUM 2.5MG/0.5MG, 3 ML NPPB SCH ×4 (03:00→21:16)
[2019-04-29 06:39] LABS: ANION GAP 5 mmol/L (5-15); CALCIUM 8.7 mg/dL (8.5-10.1); CHLORIDE 107 mmol/L (98-107); CREATININE 1.13 mg/dL (0.7-1.3)
[2019-04-29 06:43] LABS: MEAN CORPUSCULAR HEMOGLOBIN 31.1 pg (27.5-34.5); MEAN CORPUSCULAR HGB CONC 34.4 g/dL (33.2-36.2); MEAN CORPUSCULAR VOLUME 90.2 fL (81-97); RED BLOOD COUNT 2.24 x10^6/uL (4.38-5.82); RED CELL DISTRIBUTION WIDTH 18.6 % (9.4-14.8)
[2019-04-29 06:45] LABS: PLATELET COUNT 19 x10^3/uL (130-400)
[2019-04-29] MEDS: BUDESONIDE 0.5 MG/2 ML INHA NPPB SCH ×2 (06:45→21:16)
[2019-04-29 06:46] LABS: MEAN PLATELET VOLUME 7.9 fL (7.4-10.4)
[2019-04-29 07:00] VITALS: BP 106/74
[2019-04-29 07:36] LABS: MD YES
[2019-04-29 07:42] LABS: BAND#(MANUAL) 0.04 x10^3/uL; BANDS%(MANUAL) 6 % (0-7); LYMPH#(MANUAL) 0.22 x10^3/uL (1-3.4); LYMPHS% (MANUAL) 36 % (22-44); MONOS#(MANUAL) 0.07 x10^3/uL (0.3-2.7); MONOS% (MANUAL) 12 % (2-9); SEG#(MANUAL) 0.28 x10^3/uL (1.8-6.8); SEGS% (MANUAL) 46 % (42-75)
[2019-04-29 07:51] LABS: ANISOCYTOSIS 1+
[2019-04-29 07:52] LABS: <PLATELET ESTIMATE> DECREASED; <PLT MORPHOLOGY> NORMAL PLT MORPH; OVALOCYTES 1+
[2019-04-29] MEDS: TEMPLATE NON-FORMULARY MED. (Fluticasone/Umeclidin/Vilanter (Trelegy Ellipta 100-62.5-25 INH SCH (08:43)
[2019-04-29] MEDS: METOPROLOL TARTRATE 25 MG TABLET PO SCH ×2 (08:53→21:42)
[2019-04-29] MEDS: PANTOPRAZOLE 20MG TABLET PO SCH (08:53)
[2019-04-29] MEDS: CHOLECALCIFEROL 1,000 UNIT TABLET PO SCH (08:54)
[2019-04-29] MEDS: FOLIC ACID 1 MG TABLET PO SCH (08:54)
[2019-04-29] MEDS: AMLODIPINE 10 MG TAB PO SCH (08:54)
[2019-04-29] MEDS: LOSARTAN 50MG TABLET PO SCH (08:54)
[2019-04-29 12:30] LABS: MEAN CORPUSCULAR HEMOGLOBIN 31.1 pg (27.5-34.5); MEAN CORPUSCULAR VOLUME 91.4 fL (81-97); RED BLOOD COUNT 2.24 x10^6/uL (4.38-5.82); RED CELL DISTRIBUTION WIDTH 18.2 % (9.4-14.8)
[2019-04-29 12:36] LABS: PLATELET COUNT 19 x10^3/uL (130-400)
[2019-04-29 12:37] LABS: MD YES; MEAN PLATELET VOLUME 8.1 fL (7.4-10.4)
[2019-04-29 12:43] LABS: BAND#(MANUAL) 0.13 x10^3/uL; BANDS%(MANUAL) 18 % (0-7); BASOS#(MANUAL) 0.01 x10^3/uL (0-0.1); BASOS% (MANUAL) 2 % (0-1); EOS#(MANUAL) 0.01 x10^3/uL (0.0-0.4); EOS% (MANUAL) 2 % (1-7); LYMPH#(MANUAL) 0.14 x10^3/uL (1-3.4); LYMPHS% (MANUAL) 20 % (22-44); MONOS#(MANUAL) 0.07 x10^3/uL (0.3-2.7); MONOS% (MANUAL) 10 % (2-9); REACTIVE LYMPHS # (MANUAL) 0.01 x10^3/uL (0-0); REACTIVE LYMPHS % (MANUAL) 2 % (0-0); SEG#(MANUAL) 0.31 x10^3/uL (1.8-6.8); SEGS% (MANUAL) 44 % (42-75)
[2019-04-29 12:44] LABS: <PLATELET ESTIMATE> DECREASED; ANISOCYTOSIS 1+; OTHER CELLS # (MANUAL) 0.01 x10^3/uL (0-0); OTHER CELLS % (MANUAL) 2 % (0-0); OVALOCYTES 1+
[2019-04-29 12:45] LABS: <PLT MORPHOLOGY> NORMAL PLT MORPH
[2019-04-29 13:10] VITALS: BP 102/55
[2019-04-29 13:25] VITALS: BP 143/72
[2019-04-29] MEDS ORDERED: MAGNESIUM SULFATE PMX 4GM/100M 100 ML IV ONE (13:30)
[2019-04-29 15:20] VITALS: BP 118/55
[2019-04-29] MEDS: TBO-FILGRASTIM 480 MCG/0.8 ML SQ SCH (15:27)
[2019-04-29 18:14] LABS: MD YES; MEAN CORPUSCULAR HEMOGLOBIN 31.5 pg (27.5-34.5); MEAN CORPUSCULAR HGB CONC 34.6 g/dL (33.2-36.2); MEAN CORPUSCULAR VOLUME 91.1 fL (81-97); MEAN PLATELET VOLUME 8.3 fL (7.4-10.4); RED BLOOD COUNT 2.43 x10^6/uL (4.38-5.82); RED CELL DISTRIBUTION WIDTH 18.6 % (9.4-14.8)
[2019-04-29 18:17] LABS: PLATELET COUNT 20 x10^3/uL (130-400)
[2019-04-29 18:27] LABS: BAND#(MANUAL) 0.22 x10^3/uL; BANDS%(MANUAL) 22 % (0-7); EOS#(MANUAL) 0.04 x10^3/uL (0.0-0.4); EOS% (MANUAL) 4 % (1-7); LYMPH#(MANUAL) 0.25 x10^3/uL (1-3.4); LYMPHS% (MANUAL) 25 % (22-44); MONOS#(MANUAL) 0.16 x10^3/uL (0.3-2.7); MONOS% (MANUAL) 16 % (2-9); SEG#(MANUAL) 0.31 x10^3/uL (1.8-6.8); SEGS% (MANUAL) 31 % (42-75)
[2019-04-29 18:28] LABS: <PLATELET ESTIMATE> DECREASED; ANISOCYTOSIS 1+; OTHER CELLS # (MANUAL) 0.02 x10^3/uL (0-0); OTHER CELLS % (MANUAL) 2 % (0-0); OVALOCYTES 1+
[2019-04-29 18:29] LABS: <PLT MORPHOLOGY> NORMAL PLT MORPH
[2019-04-29 19:13] VITALS: BP 110/50
[2019-04-29] MEDS: PRAVASTATIN 40 MG TABLET PO SCH (21:42)
[2019-04-29] MEDS: TAMSULOSIN 0.4 MG CAP.ER.24H PO SCH (21:42)
[2019-04-30] VITALS (7 sets, daily range): BP systolic 91–126; BP diastolic 48–60
[2019-04-30 00:01] LABS: MEAN CORPUSCULAR HEMOGLOBIN 30.9 pg (27.5-34.5); MEAN CORPUSCULAR HGB CONC 34.3 g/dL (33.2-36.2); MEAN CORPUSCULAR VOLUME 90.2 fL (81-97); RED BLOOD COUNT 2.17 x10^6/uL (4.38-5.82); RED CELL DISTRIBUTION WIDTH 18.8 % (9.4-14.8)
[2019-04-30 00:49] LABS: MD YES; MEAN PLATELET VOLUME 7.9 fL (7.4-10.4)
[2019-04-30 00:50] LABS: PLATELET COUNT 18 x10^3/uL (130-400)
[2019-04-30 01:05] LABS: EOS#(MANUAL) 0.05 x10^3/uL (0.0-0.4); EOS% (MANUAL) 6 % (1-7); LYMPH#(MANUAL) 0.32 x10^3/uL (1-3.4); LYMPHS% (MANUAL) 40 % (22-44); MONOS#(MANUAL) 0.18 x10^3/uL (0.3-2.7); MONOS% (MANUAL) 22 % (2-9); NRBC % (MANUAL) 2 % (0-1); SEG#(MANUAL) 0.26 x10^3/uL (1.8-6.8); SEGS% (MANUAL) 32 % (42-75)
[2019-04-30 01:06] LABS: <PLATELET ESTIMATE> DECREASED; <PLT MORPHOLOGY> NORMAL PLT MORPH; ANISOCYTOSIS 1+; POLYCHROMASIA 1+
[2019-04-30] MEDS: ALBUTEROL/IPRATROPIUM 2.5MG/0.5MG, 3 ML NPPB SCH ×3 (03:00→15:02)
[2019-04-30 06:39] LABS: MEAN CORPUSCULAR HEMOGLOBIN 30.9 pg (27.5-34.5); MEAN CORPUSCULAR HGB CONC 34.3 g/dL (33.2-36.2); MEAN CORPUSCULAR VOLUME 90.2 fL (81-97); RED BLOOD COUNT 2.42 x10^6/uL (4.38-5.82); RED CELL DISTRIBUTION WIDTH 17.8 % (9.4-14.8)
[2019-04-30 07:08] LABS: PLATELET COUNT 22 x10^3/uL (130-400)
[2019-04-30 07:09] LABS: MD YES
[2019-04-30 07:20] LABS: BAND#(MANUAL) 0.23 x10^3/uL; BANDS%(MANUAL) 18 % (0-7); EOS#(MANUAL) 0.03 x10^3/uL (0.0-0.4); EOS% (MANUAL) 2 % (1-7); LYMPH#(MANUAL) 0.23 x10^3/uL (1-3.4); LYMPHS% (MANUAL) 18 % (22-44); MONOS#(MANUAL) 0.17 x10^3/uL (0.3-2.7); MONOS% (MANUAL) 13 % (2-9); REACTIVE LYMPHS # (MANUAL) 0.04 x10^3/uL (0-0); REACTIVE LYMPHS % (MANUAL) 3 % (0-0); SEG#(MANUAL) 0.57 x10^3/uL (1.8-6.8); SEGS% (MANUAL) 44 % (42-75)
[2019-04-30 07:21] LABS: NRBC % (MANUAL) 2 % (0-1); OTHER CELLS # (MANUAL) 0.03 x10^3/uL (0-0); OTHER CELLS % (MANUAL) 2 % (0-0)
[2019-04-30 07:28] LABS: <PLATELET ESTIMATE> DECREASED; <PLT MORPHOLOGY> NORMAL PLT MORPH; ANISOCYTOSIS 1+; OVALOCYTES 1+
[2019-04-30] MEDS: TEMPLATE NON-FORMULARY MED. (Fluticasone/Umeclidin/Vilanter (Trelegy Ellipta 100-62.5-25 INH SCH (09:00)
[2019-04-30] MEDS: BUDESONIDE 0.5 MG/2 ML INHA NPPB SCH (09:08)
[2019-04-30] MEDS: TBO-FILGRASTIM 480 MCG/0.8 ML SQ SCH (10:51)
[2019-04-30] MEDS: CHOLECALCIFEROL 1,000 UNIT TABLET PO SCH (10:51)
[2019-04-30] MEDS: FOLIC ACID 1 MG TABLET PO SCH (10:51)
[2019-04-30] MEDS: PANTOPRAZOLE 20MG TABLET PO SCH (10:52)
[2019-04-30] MEDS: LOSARTAN 25MG TABLET PO SCH (10:52)
[2019-04-30] MEDS: METOPROLOL TARTRATE 25 MG TABLET PO SCH ×2 (10:52→20:13)
[2019-04-30] MEDS: PRAVASTATIN 40 MG TABLET PO SCH (20:11)
[2019-04-30] MEDS: TAMSULOSIN 0.4 MG CAP.ER.24H PO SCH (20:11)
[2019-05-01 00:30] VITALS: BP 106/63
[2019-05-01 05:18] LABS: MEAN CORPUSCULAR HEMOGLOBIN 31.7 pg (27.5-34.5); MEAN CORPUSCULAR HGB CONC 34.5 g/dL (33.2-36.2); MEAN CORPUSCULAR VOLUME 91.8 fL (81-97); MEAN PLATELET VOLUME 8.1 fL (7.4-10.4); RED BLOOD COUNT 2.44 x10^6/uL (4.38-5.82); RED CELL DISTRIBUTION WIDTH 17.3 % (9.4-14.8)
[2019-05-01 05:21] LABS: PLATELET COUNT 26 x10^3/uL (130-400)
[2019-05-01 05:44] LABS: MD YES
[2019-05-01 05:58] LABS: BAND#(MANUAL) 0.46 x10^3/uL; BANDS%(MANUAL) 12 % (0-7); EOS#(MANUAL) 0.08 x10^3/uL (0.0-0.4); EOS% (MANUAL) 2 % (1-7); LYMPH#(MANUAL) 0.38 x10^3/uL (1-3.4); LYMPHS% (MANUAL) 10 % (22-44); METAMYELOCYTES# (MANUAL) 0.27 x10^3/uL (0-0); METAMYELOCYTES% (MANUAL) 7 % (0-1); MONOS#(MANUAL) 0.53 x10^3/uL (0.3-2.7); MONOS% (MANUAL) 14 % (2-9); MYELOCYTES# (MANUAL) 0.08 x10^3/uL (0-0); MYELOCYTES% (MANUAL) 2 % (0-0); SEG#(MANUAL) 1.75 x10^3/uL (1.8-6.8); SEGS% (MANUAL) 46 % (42-75)
[2019-05-01 05:59] LABS: <PLATELET ESTIMATE> DECREASED; ANISOCYTOSIS 1+; NRBC % (MANUAL) 6 % (0-1); OTHER CELLS # (MANUAL) 0.27 x10^3/uL (0-0); OTHER CELLS % (MANUAL) 7 % (0-0)
[2019-05-01 06:00] LABS: TOXIC GRAN 1+
[2019-05-01 06:03] LABS: OVALOCYTES 1+; POLYCHROMASIA 1+
[2019-05-01 06:04] LABS: <PLT MORPHOLOGY> NORMAL PLT MORPH
[2019-05-01 07:17] VITALS: BP 96/56
[2019-05-01] MEDS: FOLIC ACID 1 MG TABLET PO SCH (08:27)
[2019-05-01] MEDS: PANTOPRAZOLE 20MG TABLET PO SCH (08:27)
[2019-05-01] MEDS: CHOLECALCIFEROL 1,000 UNIT TABLET PO SCH (08:27)
[2019-05-01] MEDS: METOPROLOL TARTRATE 25 MG TABLET PO SCH (08:29)
[2019-05-01] MEDS: LOSARTAN 25MG TABLET PO SCH (08:29)
[2019-05-01] MEDS: TEMPLATE NON-FORMULARY MED. (Fluticasone/Umeclidin/Vilanter (Trelegy Ellipta 100-62.5-25 INH SCH (08:29)
[2019-05-01 12:34] VITALS: BP 114/54
== END 2019-05-01 13:58 | disposition home or self-care (01) | DRG 808 ==
LOC: ED 10:31 → EDIP 11:17 → 4NW 11:54 → EDIP 11:54 → 5SO 12:41 → 4NW 04-29 15:13 → CCU 04-29 16:08 → 4NW 04-29 16:18 → DCLOUNGE 05-01 13:45
PROVIDERS: ADMIT Internal Medicine; ATTEND Internal Medicine
PROC: 30233N1 Transfusion of Nonautologous Red Blood Cells into Peripheral Vein, Percutaneous Approach (ICD-10-PCS; principal; 2019-04-27)
PROC: 30233R1 Transfusion of Nonautologous Platelets into Peripheral Vein, Percutaneous Approach (ICD-10-PCS; 2019-04-27)
DX: D61.810 Antineoplastic chemotherapy induced pancytopenia (principal); J96.00 Acute respiratory failure, unspecified whether with hypoxia or hypercapnia; C34.90 Malignant neoplasm of unspecified part of unspecified bronchus or lung; I48.20 Chronic atrial fibrillation, unspecified; D68.69 Other thrombophilia; E78.5 Hyperlipidemia, unspecified; E83.42 Hypomagnesemia; I10 Essential (primary) hypertension; I25.10 Atherosclerotic heart disease of native coronary artery without angina pectoris; I25.2 Old myocardial infarction; J44.9 Chronic obstructive pulmonary disease, unspecified; K22.2 Esophageal obstruction; N40.0 Benign prostatic hyperplasia without lower urinary tract symptoms; T45.1X5A Adverse effect of antineoplastic and immunosuppressive drugs, initial encounter; Y92.89 Other specified places as the place of occurrence of the external cause; Z82.5 Family history of asthma and other chronic lower respiratory diseases; Z85.51 Personal history of malignant neoplasm of bladder; Z87.891 Personal history of nicotine dependence; Z95.0 Presence of cardiac pacemaker; Z95.1 Presence of aortocoronary bypass graft; Z95.5 Presence of coronary angioplasty implant and graft; Z99.81 Dependence on supplemental oxygen
CPT/HCPCS: 36415; 71045; 80048; 80053; 81001; 82728; 83540; 83550; 83605; 83735; 83880; 84100; 84145; 84443; 84484; 85025; 86850; 86900; 86923; 87040; 87086; 90471; 93005; 94640; G0378; J3475; J7620; J7626; J1447; J1940; J7030; P9016; P9035; P9040

== ENCOUNTER → 2019-06-01 | Outpatient (CLI) | payer MEDICARE, OTHER ==
[~2019-06-01] MED LIST changes: +APIX5TAB PO; +FLUT1BLS3 IH; +FOLI0.8T2 PO; +OMNIPAQUE 350 MG/ML, 100ML BOTTLE ONE; +PANT20TA3 PO
== END | disposition home or self-care (01) ==
LOC: CFH 11:02
PROVIDERS: ATTEND Internal Medicine Hematology & Oncology
DX: C34.11 Malignant neoplasm of upper lobe, right bronchus or lung (principal); R91.8 Other nonspecific abnormal finding of lung field; J44.9 Chronic obstructive pulmonary disease, unspecified; F10.20 Alcohol dependence, uncomplicated; F17.200 Nicotine dependence, unspecified, uncomplicated; M47.816 Spondylosis without myelopathy or radiculopathy, lumbar region; M48.061 Spinal stenosis, lumbar region without neurogenic claudication; M25.78 Osteophyte, vertebrae; N28.1 Cyst of kidney, acquired; Z96.641 Presence of right artificial hip joint; Z95.0 Presence of cardiac pacemaker
CPT/HCPCS: 71260; 72131; 74177; Q9967

== ENCOUNTER 2019-06-24 08:32 | Outpatient (CLI) | payer MEDICARE, OTHER ==
[~2019-06-24 08:32] MED LIST changes: -OMNIPAQUE 350 MG/ML, 100ML BOTTLE ONE
== END 2019-06-24 23:59 | disposition home or self-care (01) ==
LOC: ROC 08:32
PROVIDERS: ATTEND Radiology Radiation Oncology
DX: C79.51 Secondary malignant neoplasm of bone (principal)
CPT/HCPCS: G0463